=== PATIENT | female | born 1945 | race Caucasian/White ===

== ENCOUNTER 2019-09-07 10:34 | Emergency (ER) | payer MEDICARE, SELFPAY ==
--- NOTE | ~2019-09-07 | XR_ITS ---
EXAMINATION: XR elbow LT min 3V EXAM DATE: 09/07/2019 11:11 INDICATION: No known recent injury provided at this time. Pain of the left elbow. TECHNIQUE: Left elbow frontal, lateral with flexion, and oblique projections obtained and reviewed. There is no prior study for comparison. FINDINGS: Left elbow anterior humeral line intact. There are no acute fractures or dislocations jasbir ntified. There is no subcutaneous gas. The soft tissue is unremarkable. There are no radiopaque f oreign bodies. IMPRESSION: 1. Unremarkable XR elbow LT min 3V exam. Reviewed, dictated and finalized at location A. [employer]
--- NOTE | ~2019-09-07 | XR_ITS ---
EXAMINATION: XR wrist LT min 3V EXAM DATE: 09/07/2019 11:12 INDICATION: No known recent injury provided at this time. Pain of the left wrist. TECHNIQUE: Left wrist frontal, frontal with ulnar deviation, oblique and lateral projections obtained and reviewed. There is no prior study for comparison. FINDINGS: Left wrist scapholunate joint space is maintained. There is mild to moderate triscaphe and first carpometacarpal primary osteoarthritis. There are no acute fractures or dislocations identified . There is no subcutaneous gas. The soft tissue is unremarkable. There are no radiopaque foreign bodies. There are no bony erosions identified. 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 Reviewed, dictated and finalized at location A. [employer] TECH
[2019-09-07 10:42] VITALS: BP 157/82; PULSE 87; RESP 18; TEMP 36.7; O2SAT 99
[2019-09-07 11:29] LABS: Basophils Percent Auto 0.4 % (0.2-1.2); Eosinophils Percent Auto 0.5 % (0-4.4); Hematocrit 34.8 % (37.0-47.0); Hemoglobin 11.4 g/dL (12.0-15.0); Immature Granulocyte Absolute 0.03 K/mm3 (0.00-0.031); Immature Granulocyte Percent A 0.4 % (0-0.5); Lymphocytes Absolute Auto 1.37 K/mm3 (0.9-3.2); Lymphocytes Percent Auto 18.7 % (18.3-44.2); Mean Corpuscular HGB Conc 32.8 g/dl (32-36); Mean Corpuscular Volume 94.6 fl (80-100); Mean Platelet Volume 8.4 fl (7.4-10.4); Monocytes Absolute Auto 0.6 K/mm3 (0.1-0.6); Monocytes Percent Auto 7.8 % (2.6-8.5); Neutrophils Absolute Auto 5.3 K/mm3 (1.3-6.7); Neutrophils Percent Auto 72.2 % (45.5-73.1); Platelet Count Result 271 k/mm3 (150-375); Red Blood Count 3.68 M/mm3 (4.2-5.4); Red Cell Distribution Width 13.5 % (11.5-14.5); White Blood Count 7.3 K/mm3 (4.5-10.0)
--- NOTE | 2019-09-07 11:35 | ED.GENADULT ---
HPI - General Adult General Chief complaint: Extremity Injury, Upper Stated complaint: Left Hand Swelling Time Seen by Provider: 09/07/19 10:54 Source: patient and family Mode of arrival: ambulatory Limitations: no limitations History of Present Illness HPI narrative: Patient is a 74-year-old female who presents to emergency department for evaluation of left wrist pain and swelling noticed this morning patient notes that she woke with the discomfort with redness swelling and tenderness throughout the wrist joint worse with any activity or movement denies similar occurrence in the past patient has not taken anything for her symptoms. Patient denies fever chills weakness Onset (ago): hour(s) Location: upper extremity Radiation: extremity Severity: moderate Quality: aching Pain Consistency: constant Relieving factors: rest Exacerbating factors: movement Associated symptoms: denies other symptoms Treatments prior to arrival: none Related Data Home Medications Medication Instructions Recorded Confirmed amlodipine 09/07/19 bimatoprost [Lumigan] 09/07/19 hydrochlorothiazide 09/07/19 Allergies Allergy/AdvReac Type Severity Reaction Status Date / Time lisinopril Allergy Severe KIDNEY Verified 09/07/19 10:47 ISSUES fenofibrate Allergy Mild Unknown Verified 09/07/19 10:47 loratadine Allergy Unknown Unknown Verified 09/07/19 10:47 Penicillins Allergy Unknown Unknown Verified 09/07/19 10:47 Review of Systems Review of Systems: Narrative: CONSTITUTIONAL: Denies fever, chills, or sweats. EYES: Denies redness, or discharge. ENT: Denies rhinorrhea, congestion, sore throat, or otalgia. CARDIOVASCULAR: Denies chest pain, or edema. RESPIRATORY: Denies cough or dyspnea. GASTROINTESTINAL: Denies abdominal pain, nausea, vomiting. Positive for diarrhea GENITOURINARY: Denies dysuria or hematuria. SKIN: Positive for redness and swelling of the wrist joint MUSCULOSKELETAL: Positive for swelling and pain of the left wrist joint NEUROLOGIC: Denies headache, numbness, dizziness, or weakness. PMFSH Past Medical History Medical History Hypertension Social History Social History (Updated 09/07/19 @ 11:40 by Frankie Goldman PA-C) Smoking status: Current every day smoker Exam Narrative: Exam Narrative: GENERAL: Well-appearing, well-nourished, and in no acute distress. HEAD: Normocephalic, atraumatic. EYES: PERRLA and EOMI. ENT: Nares clear, no rhinorrhea or epistaxis. Mucous membranes moist. Oropharynx without tonsillar hypertrophy exudate or other lesions. CHEST: Clear to auscultation. No respiratory distress. No wheezes rales or rhonchi HEART: Regular rate and rhythm. No murmur heard. Normal peripheral pulses. ABDOMEN: Soft, nontender, nondistended EXTREMITIES: Normal range of motion. No edema. SKIN: Warm, dry, no rash. NEURO: No focal deficits. Alert and oriented x3. Neurovascularly intact. Capillary refill less than 2 seconds. Redness swelling and tenderness surrounding the left wrist joint PSYCH: Normal mood and affect. Course Course Emergency Course: Patient in the room in no distress afebrile nontoxic appearing no distress resting comfortably felt appropriate for outpatient reevaluation Consultations Consultation #1: Spoke with Dr. Sanches the preparole counseling aide of the patient to review patient's kidney function given the lack of prior blood work which she notes is in her normal range. Agrees that the patient likely has an inflammatory arthropathy that can be followed in clinic Date: 09/07/19 Time: 13:12 Consultation #2: Spoke with patient's primary care doctor Dr. Ramos who would like the patient started on Medrol Dosepak and to be given pain medicine and to follow in clinic. Agrees that the patient likely has an inflammatory arthropathy that can be followed in clinic Date: 09/07/19 Time: 13:12 Consultation #3: Patient case discussed in entirety with
[2019-09-07 11:41] LABS: INR 0.9
[2019-09-07 11:42] LABS: Partial Thromboplastin Time 26.6 SECONDS (22.3-36.8)
[2019-09-07 11:43] LABS: Alanine Aminotransferase 28 U/L (4-35); Albumin Level 3.9 g/dL (3.5-5.1); Alkaline Phosphatase 78 U/L (38-126); Aspartate Amino Transferase 26 U/L (14-36); Bilirubin,Total 0.3 mg/dL (0.2-1.3); Blood Urea Nitrogen 37 mg/dL (7-17); Calcium 9.1 mg/dL (8.4-10.2); Carbon Dioxide 25 mmol/L (22-30); Chloride 102 mmol/L (98-107); Estimated CRCL calculation 17 ml/min; Estimated Glomerular Filt Rate 22; Glucose 148 mg/dL (65-105); Potassium 4.1 mmol/L (3.4-5.0); Sodium 137 mmol/L (137-145); Uric Acid 7.6 mg/dL (2.5-7.5)
[2019-09-07 12:02] LABS: CRP 5.2 mg/dL (<1.0)
[2019-09-07 12:04] VITALS: BP 154/78; PULSE 75; RESP 16; TEMP 36.7; O2SAT 97
[2019-09-07] MEDS: SODIUM CHLORIDE 0.9% IV 1,000 ML 150 ML IV CONT (12:07)
[2019-09-07 12:51] LABS: Erythrocyte Sedimentation Rate > 140 mm/hr (0-20)
[2019-09-07] MEDS: methylPREDNISolone SOD SUCC 125 MG VIAL 60 MG IV PUSH (13:00)
[2019-09-07] MEDS: COLCHICINE 0.6 MG TABLET 1.2 MG PO (14:06)
[2019-09-07 14:40] VITALS: BP 166/89; PULSE 78; RESP 16; TEMP 36.6; O2SAT 97
== END 2019-09-07 14:50 | disposition home or self-care (01) ==
PROVIDERS: Emergency Medicine Emergency Medical Services; Emergency Provider Emergency Medicine; PCP Family Medicine Adolescent Medicine
DX: M25.532 Pain in left wrist (principal); I10 Essential (primary) hypertension; F17.200 Nicotine dependence, unspecified, uncomplicated; M19.032 Primary osteoarthritis, left wrist
CPT/HCPCS: 36415; 73080; 73110; 80053; 84550; 85025; 85610; 85652; 85730; 86140; 96361; 96365; 96375; 99284; A9270; J0131; J2930; J7030

== ENCOUNTER → 2020-01-11 14:08 | Outpatient (CLI) | payer MEDICARE, SELFPAY ==
--- NOTE | ~2020-01-11 | MM_ITS ---
EXAMINATION: MM screening marion BI w jose HISTORY: Screening mammogram TECHNIQUE: Craniocaudal and mediolateral oblique 3-D tomosynthesis images were obtained and synthetic 2-D images were generated. CAD analysis was submitted and interpreted. COMPARISON: 12/16/2018, 11/17/2017, 10/19/2016 bilateral digital screening mammogram examinations BREAST PARENCHYMAL COMPOSITION: There are scattered areas of fibroglandular density. FINDINGS: There are multiple bilateral secretory calcifications and occasional calcified microhematom as There is no evidence of suspicious mass, calcification, or architectural distortion to suggest mal ignancy in either breast. There has been no suspicious interval change. IMPRESSION: 1. No mammographic evidence of malignancy. 2. Recommend routine screening mammography in one year. BI-RADS Category 2: Benign finding(s). Reviewed, dictated and finalized at location A.
== END ==
PROVIDERS: PCP Family Medicine Adolescent Medicine; Visit Provider Family Medicine Adolescent Medicine
DX: Z12.31 Encounter for screening mammogram for malignant neoplasm of breast (principal)
CPT/HCPCS: 77063; 77067

== ENCOUNTER 2020-06-25 03:24 | Outpatient (CLI) | payer MEDICARE, SELFPAY ==
[2020-06-25 20:03] LABS: SARS-CoV-2 RNA PCR Negative
== END 2020-06-25 03:25 | disposition home or self-care (01) ==
LOC: ANHCOVIDDT 03:26
PROVIDERS: PCP Family Medicine Adolescent Medicine; Visit Provider Internal Medicine Nephrology
DX: Z01.812 Encounter for preprocedural laboratory examination (principal); Z20.828 Contact with and (suspected) exposure to other viral communicable diseases
CPT/HCPCS: 87635; C9803; U0003

== ENCOUNTER 2020-06-28 09:29 | Outpatient (CLI) | payer MEDICARE, SELFPAY ==
[2020-06-19 13:18] VITALS: BMI 27.1
[2020-06-28 11:16] LABS: Mean Platelet Volume 8.6 fl (7.4-10.4); Platelet Count Result 226 k/mm3 (150-375)
[2020-06-28 11:27] LABS: Prothrombin Time 12.7 Seconds (11.1-14.7)
== END 2020-06-28 09:30 | disposition home or self-care (01) ==
PROVIDERS: Radiology Diagnostic Radiology; PCP Family Medicine Adolescent Medicine; Visit Provider Internal Medicine Nephrology
DX: N18.4 Chronic kidney disease, stage 4 (severe) (principal)
CPT/HCPCS: 36415; 85049; 85610

== ENCOUNTER 2020-06-28 14:00 | Observation (INO) | payer MEDICARE, SELFPAY ==
[2020-06-28] VITALS (15 sets, daily range): BP systolic 139–195; BP diastolic 58–85; PULSE 70–90; RESP 16–21; TEMP 36.1–36.5; O2SAT 93–97; BMI 27.0
--- NOTE | ~2020-06-28 | US_ITS ---
EXAMINATION: US biopsy renal DATE: 07/01/2020 12:57 INDICATION: Nephrotic range proteinuria. Worsening chronic kidney disease. TECHNIQUE: The procedure including the risks, benefits, and alternatives was discussed with the patie nt. Risks discussed included bleeding and infection. The patient understood the risks and agreed to p roceed. A timeout was performed to verify the patient's name, date of , and procedure to be p erformed. The skin overlying the left kidney was prepped and draped in usual sterile fashion. Anest hetic was administered with 1% lidocaine subcutaneously. An 18 gauge core biopsy needle was then use d to obtain 3 core biopsy specimens under continuous sonographic guidance. The entry site was cleaned and dressed. There were no immediate complications. FINDINGS: Ultrasound images demonstrate the needle in the kidney. IMPRESSION: 1. Ultrasound-guided random left kidney core needle biopsy. Reviewed, dictated and finalized at location A.
--- NOTE | 2020-06-28 15:55 | ECG_ITS ---
Measurements Intervals [place] Rate: 79 P: 46 GA: 201 QRS: 80 QRSD: 127 T: 56 QT: 369 QTc: 425 Interpretive Statements SINUS RHYTHM RIGHT BUNDLE BRANCH BLOCK BASELINE ARTIFACT- I, II ABNORMAL ECG Electronically Signed On 06-28-2020 20:18:25 CDT by Clarence Nguyễn D.O.
--- NOTE | 2020-06-28 15:55 | ED.GENADULT ---
HPI - General Adult General Chief complaint: Recheck/Abnormal Lab/Rx Stated complaint: sent by pcp, kidney issues Time Seen by Provider: 06/28/20 15:54 Source: patient Mode of arrival: ambulatory Limitations: no limitations History of Present Illness HPI narrative: Patient is a 74-year-old female sent here by Dr. Sanches due to elevated blood pressure. Patient is supposed to have a kidney biopsy today but was told by Dr. Sanches that her blood pressure was too high so she needed to go to the emergency room and get admitted for blood pressure control. Patient denies any symptoms. Patient denies headache dizziness weakness numbness speech or visual disturbance chest pain shortness of breath abdominal pain or nausea vomiting. Related Data Home Medications Medication Instructions Recorded Confirmed Vitamin D3 1 tablet PO DAILY 06/19/20 06/19/20 allopurinol 1 tablet PO DAILY 06/19/20 06/19/20 furosemide 20 mg PO DAILY 06/19/20 06/19/20 multivitamin 1 tablet PO DAILY 06/19/20 06/19/20 terazosin 6 mg PO BID 06/19/20 06/19/20 Allergies Allergy/AdvReac Type Severity Reaction Status Date / Time lisinopril Allergy Severe KIDNEY Verified 06/19/20 13:21 ISSUES, SKIN BLISTERS loratadine Allergy Severe Swelling Verified 06/28/20 14:23 fenofibrate Allergy Mild Unknown Verified 06/19/20 13:21 Penicillins Allergy Unknown Rash Verified 06/19/20 13:21 Review of Systems Review of Systems: All systems reviewed & are unremarkable except as noted in HPI and below Constitutional: Constitutional: Denies body ache(s), Denies chills, Denies excessive sweating, Denies fatigue, Denies fever(s), Denies headache(s), Denies lethargy, Denies malaise, Denies weakness and Denies weight loss Eyes: Eyes: Denies blurry vision, Denies change in vision and Denies loss of vision ENT: Denies dizziness, Denies ear discharge, Denies headache(s), Denies lip swelling, Denies epistaxis, Denies nasal congestion, Denies neck pain, Denies throat swelling and Denies tongue swelling Cardiovascular: Cardiovascular: Denies chest pain, Denies chest pain at rest, Denies chest pain with activity, Denies diaphoresis, Denies rapid heart rate, Denies edema, Denies irregular heart rhythm, Denies lightheadedness, Denies palpitations, Denies dyspnea and Denies dyspnea on exertion Respiratory: Respiratory: Denies chest congestion, Denies cough, Denies hemoptysis, Denies dyspnea and Denies dyspnea on exertion Gastrointestinal: Gastrointestinal: Denies abdominal pain, Denies melena, Denies hematochezia, Denies diarrhea, Denies nausea, Denies vomiting and Denies hematemesis Musculoskeletal: Musculoskeletal: Denies abnormal gait, Denies deformity, Denies joint swelling, Denies limited range of motion, Denies neck pain and Denies numbness Neurologic: Denies Abnormal speech present, Denies abnormal gait, Denies confusion, Denies dizziness, Denies headache(s), Denies focal weakness, Denies loss of vision, Denies numbness, Denies Other visual disturbances, Denies Sensory deficit (Neuro) and Denies weakness Psychiatric: Psychiatric: Denies confusion, Denies depression, Denies auditory hallucinations, Denies homicidal ideation and Denies suicidal ideation Endocrine: Endocrine: Denies cold intolerance, Denies excessive sweating, Denies fatigue, Denies heat intolerance and Denies palpitations Hematologic/Lymphatic: Hematologic/Lymphatic: Denies easy bleeding and Denies easy bruising Allergic/Immunologic: Allergic/Immunologic: Denies lip swelling, Denies throat swelling and Denies tongue swelling [facility] Social History Social History (Updated 09/07/19 @ 11:40 by Frankie Goldman PA-C) Smoking status: Current every day smoker Exam Const: General: cooperative, healthy appearing, comfortable, no acute distress, well developed, alert and awake; No confusion Orientation/consciousness: oriented to person, oriented to place, oriented to time, patient oriented x3 and No confusion Li
[2020-06-28 16:10] LABS: Basophils Percent Auto 0.5 % (0.2-1.2); Eosinophils Absolute Auto 0.1 K/mm3 (0-0.3); Eosinophils Percent Auto 2.1 % (0-4.4); Hematocrit 29.5 % (37.0-47.0); Hemoglobin 9.8 g/dL (12.0-15.0); Immature Granulocyte Absolute 0.02 K/mm3 (0.00-0.031); Immature Granulocyte Percent A 0.3 % (0-0.5); Lymphocytes Absolute Auto 1.43 K/mm3 (0.9-3.2); Lymphocytes Percent Auto 24.6 % (18.3-44.2); Mean Corpuscular HGB Conc 33.2 g/dl (32-36); Mean Corpuscular Hemoglobin 31.5 pg (26-34); Mean Corpuscular Volume 94.9 fl (80-100); Mean Platelet Volume 8.5 fl (7.4-10.4); Monocytes Absolute Auto 0.5 K/mm3 (0.1-0.6); Monocytes Percent Auto 7.9 % (2.6-8.5); Neutrophils Absolute Auto 3.8 K/mm3 (1.3-6.7); Neutrophils Percent Auto 64.6 % (45.5-73.1); Platelet Count Result 212 k/mm3 (150-375); Red Blood Count 3.11 M/mm3 (4.2-5.4); Red Cell Distribution Width 15.4 % (11.5-14.5); White Blood Count 5.8 K/mm3 (4.5-10.0)
[2020-06-28 16:22] LABS: Anion Gap 6 mmol/L (8-16); Blood Urea Nitrogen 44 mg/dL (7-17); Calcium 8.8 mg/dL (8.4-10.2); Carbon Dioxide 26 mmol/L (22-30); Chloride 105 mmol/L (98-107); Estimated CRCL calculation 17 ml/min; Estimated Glomerular Filt Rate 20; Glucose 127 mg/dL (65-105); Potassium 4.4 mmol/L (3.4-5.0); Sodium 137 mmol/L (137-145)
--- NOTE | 2020-06-28 20:20 | ADMGEN ---
This patient, Maura Hernandez, was admitted to Medical Room 341-01. Patient/family oriented to hospital policies and general routines including ID bracelet, bed and alarms, visiting hours, pain management, procedures, bathroom and other care routines, personal items, smoking policy, room service/diet, and visiting hours. Valuables list has been completed. Information on how to activate the Rapid Response Team has been discussed. Patient/Family are encouraged to report perceived risks to care and to ask questions if they do not understand what they are told or what they should do.
[2020-06-28] MEDS: TERAZOSIN HCL 5 MG CAPSULE PO (21:27)
[2020-06-28] MEDS: TERAZOSIN HCL 1 MG CAPSULE PO (21:28)
[2020-06-28] MEDS: LABETALOL HCL INJ 100 MG/20 ML VIAL 20 MG IV PUSH (21:29)
--- NOTE | 2020-06-28 22:26 | PM.IMHP ---
H&P: HPI History of Present Illness Date/Time: 06/28/20 22:26 Chief complaint: ACUTE KIDNEY INJURY, UNCONTROLLED HTN Narrative: Maura Hernandez is a 74 year old female Who has a history of chronic renal failure stage 4-5. From what I can tell her creatinine is been pretty stable and her GFR. The patient was supposed to have a renal biopsy today however her blood pressure was too high and she was sent to the emergency room to get her blood pressure down. Her blood pressure is 185/73 and 195/81. The patient still continues to smoke about half a pack a cigarettes a day. And she said that she took her Lasix and her blood pressure medication before she came here this morning for her biopsy. And her blood pressure was still high. I asked her she was anxious and she said she really was Not. The patient was not given anything in the emergency room. I gave her hydralazine and then I ordered labetalol. I also ordered p.r.n. Ativan as well. Date of service 06/28/2020 Review of Systems Review of Systems: All systems reviewed & are unremarkable except as noted in HPI and below Constitutional: Constitutional: Reports as per HPI and Reports no additional constitutional complaints Eyes: Eyes: Reports as per HPI and Reports no additional eye complaints ENT: Reports system reviewed and no additional complaints, except as documented and Reports Normal hearing present Cardiovascular: Cardiovascular: Reports no additional cardiovascular complaints Respiratory: Respiratory: Reports no additional respiratory complaints and Reports no additional respiratory complaints Gastrointestinal: Gastrointestinal: Reports as per HPI and Reports no additional gastrointestinal complaints Musculoskeletal: Musculoskeletal: Reports no additional musculoskeletal complaints Integumentary/Breasts: Skin/Breast: Reports system reviewed and no additional complaints, except as docu and Reports as per HPI Neurologic: Reports system reviewed and no additional complaints, except as documented, Reports as per HPI and Reports Normal hearing present Psychiatric: Psychiatric: Reports no additional psychiatric complaints and Reports as per HPI Endocrine: Endocrine: Reports no additional endocrine complaints Hematologic/Lymphatic: Hematologic/Lymphatic: Reports no additional hematologic/lymphatic complaints Allergic/Immunologic: Allergic/Immunologic: Reports no additional allergic/immunologic complaints [facility] Past Medical History Medical History (Updated 06/28/20 @ 22:48 by Ritu Bass NP) Anemia Chronic renal failure, stage 4 (severe) Glaucoma Gout Hypertension Macular degeneration Surgical History Surgical History (Updated 06/28/20 @ 22:33 by Ritu Bass NP) H/O bilateral cataract extraction Family History Family History (Updated 06/28/20 @ 22:34 by Ritu Bass NP) Sibling Acute myocardial infarction Father Cerebrovascular accident Sibling Diabetes mellitus Mother Heart disease Social History Social History (Updated 06/28/20 @ 22:38 by Ritu Bass NP) Social History: The patient lives alone and 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 she is a full code and her daughter is the durable power for tax associate attorney. The patient raised her grandson vicki but only had one daughter. She her and they continued to live together until 3 years ago when he . No alcohol or street drugs. Years smoked: 30 Smoking status: Current every day smoker Tobacco type: cigarettes Alcohol intake: current Drinks per week: 1 Substance use: never Gender identity (if verbalized by the patient): Female Spiritual care concerns: No Meds Home Medications and Allergies Home Medications Medication Instructions Recorded Confirmed Type Vitamin D3 2,000 unit PO DAILY 06/19/20 06/28/20 History furosemide 20 mg PO DAILY 06/19/20 06/28/20 History multivitamin 1 table
[2020-06-29 05:45] LABS: Basophils Percent Auto 0.7 % (0.2-1.2); Eosinophils Absolute Auto 0.1 K/mm3 (0-0.3); Eosinophils Percent Auto 1.8 % (0-4.4); Hemoglobin 9.3 g/dL (12.0-15.0); Immature Granulocyte Absolute 0.03 K/mm3 (0.00-0.031); Immature Granulocyte Percent A 0.7 % (0-0.5); Lymphocytes Absolute Auto 1.15 K/mm3 (0.9-3.2); Lymphocytes Percent Auto 25.5 % (18.3-44.2); Mean Corpuscular HGB Conc 32.1 g/dl (32-36); Mean Corpuscular Hemoglobin 31.2 pg (26-34); Mean Corpuscular Volume 97.3 fl (80-100); Mean Platelet Volume 8.8 fl (7.4-10.4); Monocytes Absolute Auto 0.4 K/mm3 (0.1-0.6); Monocytes Percent Auto 8.4 % (2.6-8.5); Neutrophils Absolute Auto 2.8 K/mm3 (1.3-6.7); Neutrophils Percent Auto 62.9 % (45.5-73.1); Platelet Count Result 200 k/mm3 (150-375); Red Blood Count 2.98 M/mm3 (4.2-5.4); Red Cell Distribution Width 15.3 % (11.5-14.5); White Blood Count 4.5 K/mm3 (4.5-10.0)
[2020-06-29 05:46] VITALS: BP 163/60; PULSE 63; RESP 16; TEMP 36.4; O2SAT 96
[2020-06-29 06:05] LABS: Alanine Aminotransferase 22 U/L (4-35); Albumin Level 3.5 g/dL (3.5-5.1); Alkaline Phosphatase 71 U/L (38-126); Anion Gap 10 mmol/L (8-16); Aspartate Amino Transferase 28 U/L (14-36); Bilirubin,Total 0.2 mg/dL (0.2-1.3); Blood Urea Nitrogen 44 mg/dL (7-17); Calcium 8.6 mg/dL (8.4-10.2); Carbon Dioxide 26 mmol/L (22-30); Chloride 107 mmol/L (98-107); Estimated CRCL calculation 16 ml/min; Estimated Glomerular Filt Rate 18; Glucose 84 mg/dL (65-105); Magnesium 2.1 mg/dL (1.6-2.3); Potassium 4.2 mmol/L (3.4-5.0); Sodium 143 mmol/L (137-145)
[2020-06-29 07:13] LABS: Free T4 Free Thyroxine Reflex 0.92 ng/dL (0.78-2.19)
[2020-06-29 08:12] LABS: Total Triiodothyronine (T3) 0.93 NG/ML (0.97-1.69)
--- NOTE | 2020-06-29 09:42 | PM.CNNEP ---
Assessment and Plan Assessment and plan (1) Chronic renal failure, stage 4 (severe): Code(s): N18.4 - Chronic kidney disease, stage 4 (severe) Status: Chronic Assessment and Plan: slow deterioration of renal function in the last year most recent outpatient labs with a creatinine of 3.1mg/dl (GFR 14cc/min) outpatient evaluation with nephrotic range proteinuria, + REAGAN and + [employer] outpatient renal biopsy not able to be done due to elevated BP issues attempt renal biopsy on Wednesday assuming better BP control achieved while hospitalized (2) Uncontrolled hypertension: Code(s): I10 - Essential (primary) hypertension Status: Acute Assessment and Plan: fluctuates as noted since admission goal is to get BP below 160s (per radiology protocol) to do renal biopsy safely PRN medications ordered follow trend of BP over course of the day and add/adjust medications - consider adding oral hydralazine versus amlodipine if necessary (3) Anemia: Code(s): D64.9 - Anemia, unspecified Status: Acute Assessment and Plan: presumably related to CKD check iron studies to assess if need IV iron follow trend of H/H Will continue to follow. History of Present Illness Reason for Consult Consult date: 06/29/20 Reason for consult: chronic renal failure Chief Complaint Chief complaint: ACUTE KIDNEY INJURY, UNCONTROLLED HTN History of Present Illness Narrative: The patient is a 74-year-old female with a past medical history as outlined below who presented to [facility] room for uncontrolled hypertension and worsening kidney function. The patient was originally scheduled for a outpatient renal biopsy yesterday for further evaluation of her ongoing decline in her kidney function in the last year. Unfortunately, her blood pressure was too high for the procedure to be done safely. Further complicating matters is the fact that this outpatient kidney biopsy has been rescheduled several times as her blood pressure has been difficult to control as an outpatient in general. From review of her records, on this most recent attempt at an outpatient kidney biopsy, it was felt that if her blood pressure remained elevated and the kidney biopsy could not be done, it was felt that perhaps inpatient hospitalization for to optimize her blood pressure would be warranted in attempt to get the kidney biopsy done sooner than later particularly since her kidney function has been slowly declining. Evaluation emergency room did not demonstrate patient to be in any distress but her blood pressure was mildly elevated. After discussion with Dr. Sanches, particularly in the setting of ongoing deterioration of her kidney function and the concern that she may require further intervention with whatever pathology may be present in her kidneys, it was decided for admission for medical management of her blood pressure and subsequent renal biopsy for definitive answer of what is causing her kidney function to deteriorate. Renal consultation was requested due to her chronic kidney disease. From review of her records and my discussion with Dr. Sanches, the patient's kidney function has been slowly declining in the last year. The patient had a baseline creatinine around 1.8-2.0 mg/dL about a year ago. However, more recently, her kidney function has been slowly declining with her most recent outpatient labs demonstrated a creatinine of 3.1 mg/dL with a GFR of 14cc/minute. it was discussed with the patient that if her kidney function continues to deteriorate she may require renal replacement therapy/dialysis which eventually led to her decision to agree to a renal biopsy (she had previously refused to do this in the past due to work related issues). Unfortunately, as already mentioned above, her blood pressure has been extremely difficult to control and all attempts to arrange for an outpatient renal biopsy have been m
[2020-06-29] MEDS: TERAZOSIN HCL 5 MG CAPSULE PO ×2 (09:56→17:06)
[2020-06-29] MEDS: FUROSEMIDE 20 MG TABLET PO (09:56)
[2020-06-29] MEDS: CHOLECALCIFEROL 1,000 UNITS TABLET 2000 UNITS PO (09:56)
[2020-06-29] MEDS: MULTIVITAMINS THERAPEUTIC TAB (*BKC) 1 TABLET PO (09:56)
[2020-06-29] MEDS: TERAZOSIN HCL 1 MG CAPSULE PO ×2 (09:56→17:06)
[2020-06-29] MEDS: allopurinoL 100 MG TABLET PO (12:48)
[2020-06-29 14:00] VITALS: BP 152/62; PULSE 66; RESP 16; TEMP 36.6; O2SAT 99
[2020-06-29] MEDS: NICOTINE (*PBKC) 14 MG PATCH 1 PATCH TRANSDERM (14:33)
--- NOTE | 2020-06-29 16:45 | PM.IMPN ---
Progress Note: A&P Assessment and Plan (1) Uncontrolled hypertension: Code(s): I10 - Essential (primary) hypertension Status: Acute Assessment and Plan: Patient was scheduled to have an outpatient renal biopsy 06/28 for evaluation of declining renal function over the last 1 year. Biopsy was unable to be performed safely due to elevated blood pressures on arrival. BPs as elevated as 195/81 on arrival. She was treated with IV labetalol. Today she remains on Terazosin. Appreciate nephrology recommendations. Monitor BP and adjust treatment as needed. (2) Chronic renal failure, stage 4 (severe): Code(s): N18.4 - Chronic kidney disease, stage 4 (severe) Status: Chronic Assessment and Plan: Management per nephrology - appreciate recommendations. Tentative plan is for renal biopsy on Wednesday if blood pressures are improved. (3) Anemia: Qualifiers: Anemia type: unspecified type Qualified Code(s): D64.9 - Anemia, unspecified Code(s): D64.9 - Anemia, unspecified Status: Acute Assessment and Plan: H&H low but stable. No evidence of acute bleeding. Suspect may be related to chronic kidney disease, however will check iron panel, B12, folate in AM. Monitor CBC and transfuse PRN. Subjective Date/time seen: 06/29/20 1200 Interval history: Ms. Hernandez is a 74yo F admitted for hypertension. She was scheduled to get an outpatient renal biopsy yesterday which was not able to be performed due to elevated blood pressure. She reports feeling fine today and denies any chest pain, shortness of breath, dizziness, lightheadedness, or headache. She is hungry from being NPO but otherwise offers no complaints. She denies any nausea or vomiting. Review of Systems Review of Systems: Narrative: Twelve systems were reviewed with pertinent positives and negatives as per HPI. Exam Narrative: Exam Narrative: General: Female ambulating independently in the room, then sitting on the edge of the bed in no acute distress. HEENT: Normocephalic, EOMI, oral mucosa moist. Cardiovascular: Rate and rhythm are regular. Respiratory: Lungs clear to auscultation all schuler. Non-labored breathing. Tolerating room air. Abdomen: Soft, non-tender, non-distended, bowel sounds present. Extremities: Peripheral pulses intact. No edema. Neuro: No focal neurological deficits. Speech is clear. Objective Data Vital Signs Vital Signs: Last Vital Signs Temp 97.8 F 06/29/20 14:00 Pulse 66 06/29/20 14:00 Resp 16 06/29/20 14:00 BP 152/62 H 06/29/20 14:00 Pulse Ox 99 06/29/20 14:00 Intake/Output Intake/Output: Intake & Output 06/26/20 06/27/20 06/28/20 06/29/20 23:59 23:59 23:59 23:59 Intake Total 480 Output Total 600 Balance -120 Meds/Results Medications: Active Medications Generic Name Dose Route Start Last Admin Trade Name Freq PRN Reason Stop Dose Admin Allopurinol 100 mg 06/29/20 12:00 06/29/20 12:48 Zyloprim PO 100 mg 1200 CHRISTOPHE Administration Furosemide 20 mg 06/29/20 09:00 06/29/20 09:56 Lasix Tablet PO 20 mg DAILY CHRISTOPHE Administration Hydralazine HCl 10 mg 06/28/20 20:59 Apresoline Hcl Inj IV PUSH Q8H PRN Blood Pressure - High Lorazepam 0.5 mg 06/28/20 22:29 Ativan Inj IV PUSH Q6H PRN Anxiety Multivitamins Therapeutic 1 tablet 06/29/20 09:00 06/29/20 09:56 Multivitamins Therapeutic(*Bkc PO 1 tablet DAILY CHRISTOPHE Administration Nicotine 1 patch 06/29/20 11:35 06/29/20 14:33 Nicoderm Cq 14 Mg TRANSDERM 1 patch QAM CHRISTOPHE Administration Terazosin HCl 5 mg 06/28/20 21:05 06/29/20 09:56 Hytrin PO 5 mg BID CHRISTOPHE Administration Terazosin HCl 1 mg 06/28/20 21:05 06/29/20 09:56 Hytrin PO 1 mg BID CHRISTOPHE Administration Vitamin D 2,0
[2020-06-29 20:36] VITALS: BP 178/68; PULSE 66; RESP 16; TEMP 36.7; O2SAT 95
[2020-06-29 23:19] VITALS: BP 182/76
[2020-06-29] MEDS: hydrALAZINE HCL 20 MG/ML VIAL 10 MG IV PUSH (23:22)
[2020-06-30 01:30] VITALS: BP 168/74
[2020-06-30 05:47] VITALS: BP 185/75; PULSE 92; RESP 16; TEMP 36.8; O2SAT 98
[2020-06-30 06:36] LABS: Basophils Percent Auto 0.4 % (0.2-1.2); Eosinophils Absolute Auto 0.1 K/mm3 (0-0.3); Eosinophils Percent Auto 1.5 % (0-4.4); Hematocrit 31.1 % (37.0-47.0); Immature Granulocyte Absolute 0.03 K/mm3 (0.00-0.031); Immature Granulocyte Percent A 0.5 % (0-0.5); Lymphocytes Absolute Auto 1.36 K/mm3 (0.9-3.2); Lymphocytes Percent Auto 24.9 % (18.3-44.2); Mean Corpuscular HGB Conc 32.2 g/dl (32-36); Mean Corpuscular Hemoglobin 30.6 pg (26-34); Mean Corpuscular Volume 95.1 fl (80-100); Mean Platelet Volume 8.6 fl (7.4-10.4); Monocytes Absolute Auto 0.5 K/mm3 (0.1-0.6); Monocytes Percent Auto 8.8 % (2.6-8.5); Neutrophils Absolute Auto 3.5 K/mm3 (1.3-6.7); Neutrophils Percent Auto 63.9 % (45.5-73.1); Platelet Count Result 229 k/mm3 (150-375); Red Blood Count 3.27 M/mm3 (4.2-5.4); Red Cell Distribution Width 14.9 % (11.5-14.5); White Blood Count 5.5 K/mm3 (4.5-10.0)
[2020-06-30 06:47] LABS: Anion Gap 3 mmol/L (8-16); Blood Urea Nitrogen 42 mg/dL (7-17); Carbon Dioxide 25 mmol/L (22-30); Chloride 108 mmol/L (98-107); Estimated CRCL calculation 15 ml/min; Estimated Glomerular Filt Rate 17; Glucose 118 mg/dL (65-105); Potassium 4.3 mmol/L (3.4-5.0); Sodium 136 mmol/L (137-145)
[2020-06-30 06:54] LABS: Transferrin 177 mg/dL (206-381)
[2020-06-30 06:59] LABS: Iron 45 ug/dL (37-170)
[2020-06-30 07:10] LABS: Percent Iron Saturation 18 % (20-50)
[2020-06-30 07:56] LABS: Folic Acid > 20.0 ng/mL (2.76->20)
[2020-06-30] MEDS: NICOTINE (*PBKC) 14 MG PATCH 1 PATCH TRANSDERM (08:50)
[2020-06-30] MEDS: TERAZOSIN HCL 1 MG CAPSULE PO ×2 (08:50→16:49)
[2020-06-30] MEDS: FUROSEMIDE 20 MG TABLET PO (08:51)
[2020-06-30] MEDS: TERAZOSIN HCL 5 MG CAPSULE PO ×2 (08:51→16:49)
[2020-06-30] MEDS: MULTIVITAMINS THERAPEUTIC TAB (*BKC) 1 TABLET PO (08:51)
[2020-06-30] MEDS: amLODIPine BESYLATE 2.5 MG TABLET PO ×2 (08:51→11:58)
[2020-06-30] MEDS: CHOLECALCIFEROL 1,000 UNITS TABLET 2000 UNITS PO (08:51)
[2020-06-30] MEDS: allopurinoL 100 MG TABLET PO (11:59)
--- NOTE | 2020-06-30 12:34 | PM.IMPN ---
Progress Note: A&P Assessment and Plan (1) Uncontrolled hypertension: Code(s): I10 - Essential (primary) hypertension Status: Acute Assessment and Plan: Patient was scheduled to have an outpatient renal biopsy 06/28 for evaluation of declining renal function over the last 1 year. Biopsy was unable to be performed safely due to elevated blood pressures on arrival. BPs as elevated as 195/81 on arrival. She was treated with IV labetalol. Improved but still elevated this morning. Today she remains on Terazosin and Dr Villanueva has added Norvasc. Appreciate nephrology recommendations. Monitor BP and adjust treatment as needed. (2) Chronic renal failure, stage 4 (severe): Code(s): N18.4 - Chronic kidney disease, stage 4 (severe) Status: Chronic Assessment and Plan: Management per nephrology - appreciate recommendations. Cr up to 2.7 today. Tentative plan is for renal biopsy tomorrow if blood pressures are improved. Monitor BMP. (3) Anemia: Qualifiers: Anemia type: unspecified type Qualified Code(s): D64.9 - Anemia, unspecified Code(s): D64.9 - Anemia, unspecified Status: Acute Assessment and Plan: H&H low but stable. No evidence of acute bleeding. Suspect may be related to chronic kidney disease. Monitor CBC and transfuse PRN. Subjective Date/time seen: 06/30/20 1100 Interval history: Ms. Hernandez is a 74yo F admitted for hypertension. She was scheduled to get an outpatient renal biopsy 06/28 which was not able to be performed due to elevated blood pressure. She reports feeling fine today and offers no complaints. She denies any chest pain, shortness of breath, dizziness, lightheadedness, or headache. Tolerating oral intake without nausea or vomiting. Review of Systems Review of Systems: Narrative: Twelve systems were reviewed with pertinent positives and negatives as per HPI. Exam Narrative: Exam Narrative: General: Female resting on edge of bed in no acute distress. HEENT: Normocephalic, EOMI, oral mucosa moist. Cardiovascular: Rate and rhythm are regular. Respiratory: Lungs clear to auscultation all schuler. Non-labored breathing. Tolerating room air. Abdomen: Soft, non-tender, non-distended, bowel sounds present. Extremities: Peripheral pulses intact. No edema. Neuro: No focal neurological deficits. Speech is clear. Objective Data Vital Signs Vital Signs: Last Vital Signs Temp 98.3 F 06/30/20 05:47 Pulse 92 06/30/20 05:47 Resp 16 06/30/20 05:47 BP 185/75 H 06/30/20 05:47 Pulse Ox 98 06/30/20 05:47 Intake/Output Intake/Output: Intake & Output 06/27/20 06/28/20 06/29/20 06/30/20 23:59 23:59 23:59 23:59 Intake Total 1650 540 Output Total 1850 1100 Balance -200 -560 Meds/Results Medications: Active Medications Generic Name Dose Route Start Last Admin Trade Name Freq PRN Reason Stop Dose Admin Allopurinol 100 mg 06/29/20 12:00 06/30/20 11:59 Zyloprim PO 100 mg 1200 CHRISTOPHE Administration Amlodipine Besylate 5 mg 07/01/20 09:00 Norvasc PO DAILY CHRISTOPHE Furosemide 20 mg 06/29/20 09:00 06/30/20 08:51 Lasix Tablet PO 20 mg DAILY CHRISTOPHE Administration Hydralazine HCl 10 mg 06/28/20 20:59 06/29/20 23:22 Apresoline Hcl Inj IV PUSH 10 mg Q8H PRN Administration Blood Pressure - High Lorazepam 0.5 mg 06/28/20 22:29 Ativan Inj IV PUSH Q6H PRN Anxiety Multivitamins Therapeutic 1 tablet 06/29/20 09:00 06/30/20 08:51 Multivitamins Therapeutic(*Bkc PO 1 tablet DAILY CHRISTOPHE Administration Nicotine 1 patch 06/29/20 11:35 06/30/20 08:50 Nicoderm Cq 14 Mg TRANSDERM 1 patch QAM CHRISTOPHE Administration Terazosin HCl 5 mg 06/28/20 21:05 06/30/20 08:51 Hytrin PO 5 mg BID CHRISTOPHE Administration Terazosin HCl 1
--- NOTE | 2020-06-30 13:51 | PM.PNNEP ---
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 outpatient renal biopsy not able to be done due to elevated BP issues attempt renal biopsy on Wednesday assuming better BP control achieved while hospitalized (2) Uncontrolled hypertension: Code(s): I10 - Essential (primary) hypertension Status: Acute Assessment and Plan: fluctuates as noted since admission goal is to get BP below 160s (per radiology protocol) to do renal biopsy safely PRN medications ordered added amlodipine today (3) Anemia: Qualifiers: Anemia type: unspecified type Qualified Code(s): D64.9 - Anemia, unspecified Code(s): D64.9 - Anemia, unspecified Status: Acute Assessment and Plan: presumably related to CKD check iron studies to assess if need IV iron follow trend of H/H Will continue to follow. Subjective Date/time seen: 06/30/20 13:51 No new issues or problems to report at this time; BP remains elevated so amlodipine added; no acute complaints voiced; tentatively planning renal biopsy tomorrow if BP acceptable. Exam Narrative: Exam Narrative: General: WD/WN female in NAD Heart: normal S1 and S2; no rub Lungs: clear to auscultation Abdomen: soft, nontender, nondistended, positive bowel sounds Extremities: no cyanosis or clubbing; no edema Skin: warm and dry Objective Data Vital Signs Vital Signs: Vital Signs Temp Pulse Resp BP Pulse Ox 06/30/20 05:47 36.8 C 92 16 185/75 H 98 06/30/20 01:30 168/74 H 06/29/20 23:19 182/76 H 06/29/20 20:36 36.7 C 66 16 178/68 H 95 06/29/20 14:00 36.6 C 66 16 152/62 H 99 Intake/Output Intake/Output: Intake & Output 06/27/20 06/28/20 06/29/20 06/30/20 23:59 23:59 23:59 23:59 Intake Total 1650 780 Output Total 1850 1100 Balance -200 -320 Meds/Results Medications: Active Medications Generic Name Dose Route Start Last Admin Trade Name Freq PRN Reason Stop Dose Admin Allopurinol 100 mg 06/29/20 12:00 06/30/20 11:59 Zyloprim PO 100 mg 1200 CHRISTOPHE Administration Amlodipine Besylate 5 mg 07/01/20 09:00 Norvasc PO DAILY CHRISTOPHE Furosemide 20 mg 06/29/20 09:00 06/30/20 08:51 Lasix Tablet PO 20 mg DAILY CHRISTOPHE Administration Hydralazine HCl 10 mg 06/28/20 20:59 06/29/20 23:22 Apresoline Hcl Inj IV PUSH 10 mg Q8H PRN Administration Blood Pressure - High Lorazepam 0.5 mg 06/28/20 22:29 Ativan Inj IV PUSH Q6H PRN Anxiety Multivitamins Therapeutic 1 tablet 06/29/20 09:00 06/30/20 08:51 Multivitamins Therapeutic(*Bkc PO 1 tablet DAILY CHRISTOPHE Administration Nicotine 1 patch 06/29/20 11:35 06/30/20 08:50 Nicoderm Cq 14 Mg TRANSDERM 1 patch QAM CHRISTOPHE Administration Terazosin HCl 5 mg 06/28/20 21:05 06/30/20 08:51 Hytrin PO 5 mg BID CHRISTOPHE Administration Terazosin HCl 1 mg 06/28/20 21:05 06/30/20 08:50 Hytrin PO 1 mg BID CHRISTOPHE Administration Vitamin D 2,000 units 06/29/20 09:00 06/30/20 08:51 Vitamin D PO 2,000 units DAILY CHRISTOPHE Administration Labs Labs: Laboratory Tests 06/30/20 06:13 06/30/20 06:13 Quality VTE Prophylaxis VTE prophylaxis: mechanical ordered (SCDs)
[2020-06-30 15:12] VITALS: BP 173/80; PULSE 88; RESP 14; TEMP 36.8; O2SAT 98
[2020-06-30] MEDS: hydrALAZINE HCL 20 MG/ML VIAL 10 MG IV PUSH (15:16)
[2020-06-30 17:45] VITALS: BP 133/54; PULSE 100; RESP 16; TEMP 36.7; O2SAT 97
[2020-06-30 19:45] VITALS: BP 147/69; PULSE 92; RESP 18; TEMP 37; O2SAT 96
[2020-07-01 05:37] VITALS: BP 171/69; PULSE 73; RESP 16; TEMP 36.3; O2SAT 97
[2020-07-01 06:02] LABS: Basophils Percent Auto 0.6 % (0.2-1.2); Eosinophils Absolute Auto 0.1 K/mm3 (0-0.3); Eosinophils Percent Auto 1.3 % (0-4.4); Hematocrit 29.4 % (37.0-47.0); Hemoglobin 9.5 g/dL (12.0-15.0); Immature Granulocyte Absolute 0.03 K/mm3 (0.00-0.031); Immature Granulocyte Percent A 0.6 % (0-0.5); Lymphocytes Percent Auto 24.6 % (18.3-44.2); Mean Corpuscular HGB Conc 32.3 g/dl (32-36); Mean Corpuscular Hemoglobin 30.7 pg (26-34); Mean Corpuscular Volume 95.1 fl (80-100); Mean Platelet Volume 8.9 fl (7.4-10.4); Monocytes Absolute Auto 0.5 K/mm3 (0.1-0.6); Monocytes Percent Auto 8.9 % (2.6-8.5); Neutrophils Absolute Auto 3.4 K/mm3 (1.3-6.7); Platelet Count Result 243 k/mm3 (150-375); Red Blood Count 3.09 M/mm3 (4.2-5.4); Red Cell Distribution Width 14.9 % (11.5-14.5); White Blood Count 5.3 K/mm3 (4.5-10.0)
[2020-07-01 06:11] LABS: Prothrombin Time 12.7 Seconds (11.1-14.7)
[2020-07-01 06:12] LABS: Partial Thromboplastin Time 30.7 SECONDS (22.3-36.8)
[2020-07-01 06:20] LABS: Albumin Level 3.6 g/dL (3.5-5.1); Anion Gap 6 mmol/L (8-16); Blood Urea Nitrogen 39 mg/dL (7-17); Calcium 9.1 mg/dL (8.4-10.2); Carbon Dioxide 26 mmol/L (22-30); Chloride 108 mmol/L (98-107); Estimated CRCL calculation 17 ml/min; Estimated Glomerular Filt Rate 20; Glucose 107 mg/dL (65-105); Phosphorus 5.3 mg/dL (2.5-4.5); Potassium 4.1 mmol/L (3.4-5.0); Sodium 140 mmol/L (137-145)
[2020-07-01] MEDS: hydrALAZINE HCL 20 MG/ML VIAL 10 MG IV PUSH (06:33)
[2020-07-01] MEDS: MULTIVITAMINS THERAPEUTIC TAB (*BKC) 1 TABLET PO (08:48)
[2020-07-01] MEDS: amLODIPine BESYLATE 2.5 MG TABLET PO (08:48)
[2020-07-01] MEDS: TERAZOSIN HCL 5 MG CAPSULE PO (08:48)
[2020-07-01] MEDS: TERAZOSIN HCL 1 MG CAPSULE PO (08:48)
[2020-07-01] MEDS: CHOLECALCIFEROL 1,000 UNITS TABLET 2000 UNITS PO (08:48)
[2020-07-01] MEDS: FUROSEMIDE 20 MG TABLET PO (08:49)
[2020-07-01] MEDS: NICOTINE (*PBKC) 14 MG PATCH 1 PATCH TRANSDERM (08:49)
[2020-07-01 10:07] VITALS: BP 141/63
[2020-07-01 12:51] VITALS: BP 153/80; PULSE 84; RESP 18; O2SAT 95
[2020-07-01 12:52] VITALS: BP 153/78; PULSE 86; RESP 20; O2SAT 95
[2020-07-01] MEDS: allopurinoL 100 MG TABLET PO (13:20)
[2020-07-01 14:00] VITALS: BP 153/78; PULSE 88; RESP 16; TEMP 36.3; O2SAT 94
--- NOTE | 2020-07-01 15:14 | PM.PNNEP ---
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 outpatient renal biopsy not able to be done due to elevated BP issues s/p renal biopsy on Wednesday today follow-up on preliminary results (2) Uncontrolled hypertension: Code(s): I10 - Essential (primary) hypertension Status: Acute Assessment and Plan: fluctuates as noted since admission better control at this time (3) Anemia: Qualifiers: Anemia type: unspecified type Qualified Code(s): D64.9 - Anemia, unspecified Code(s): D64.9 - Anemia, unspecified Status: Acute Assessment and Plan: presumably related to CKD follow H/H Will continue to follow - not opposed to discharge from renal perspective; myself or Dr. Sanches can call patient to review renal biopsy results/pathology when available. Subjective Date/time seen: 07/01/20 15:14 S/P renal biopsy earlier today and tolerated the procedure reasonably well; BP has been doing better with addition of amlodipne and PRN IV hydralazine; otherwise, no apparent distress voiced; no events or new issues overnight or earlier this AM. Exam Narrative: Exam Narrative: General: WD/WN female in NAD Heart: normal S1 and S2; no rub Lungs: clear to auscultation Abdomen: soft, nontender, nondistended, positive bowel sounds Extremities: no cyanosis or clubbing; no edema Skin: warm and intact Objective Data Vital Signs Vital Signs: Vital Signs Temp Pulse Resp BP Pulse Ox 07/01/20 14:00 36.3 C L 88 16 153/78 H 94 07/01/20 12:52 86 20 153/78 H 95 07/01/20 12:51 84 18 153/80 H 95 07/01/20 10:07 141/63 H 07/01/20 05:37 36.3 C L 73 16 171/69 H 97 06/30/20 19:45 37.0 C 92 18 147/69 H 96 06/30/20 17:45 36.7 C 100 16 133/54 L 97 Intake/Output Intake/Output: Intake & Output 06/28/20 06/29/20 06/30/20 07/01/20 23:59 23:59 23:59 23:59 Intake Total 1650 2270 880 Output Total 1850 2151 1999 Balance -200 119 -1120 Meds/Results Medications: Active Medications Generic Name Dose Route Start Last Admin Trade Name Freq PRN Reason Stop Dose Admin Allopurinol 100 mg 06/29/20 12:00 07/01/20 13:20 Zyloprim PO 100 mg 1200 CHRISTOPHE Administration Amlodipine Besylate 2.5 mg 07/01/20 09:00 07/01/20 08:48 Norvasc PO 2.5 mg DAILY CHRISTOPHE Administration Furosemide 20 mg 06/29/20 09:00 07/01/20 08:49 Lasix Tablet PO 20 mg DAILY CHRISTOPHE Administration Hydralazine HCl 10 mg 06/28/20 20:59 07/01/20 06:33 Apresoline Hcl Inj IV PUSH 10 mg Q8H PRN Administration Blood Pressure - High Lorazepam 0.5 mg 06/28/20 22:29 Ativan Inj IV PUSH Q6H PRN Anxiety Multivitamins Therapeutic 1 tablet 06/29/20 09:00 07/01/20 08:48 Multivitamins Therapeutic(*Bkc PO 1 tablet DAILY CHRISTOPHE Administration Nicotine 1 patch 06/29/20 11:35 07/01/20 08:49 Nicoderm Cq 14 Mg TRANSDERM 1 patch QAM CHRISTOPHE Administration Terazosin HCl 5 mg 06/28/20 21:05 07/01/20 08:48 Hytrin PO 5 mg BID CHRISTOPHE Administration Terazosin HCl 1 mg 06/28/20 21:05 07/01/20 08:48 Hytrin PO 1 mg BID CHRISTOPHE Administration Vitamin D 2,000 units 06/29/20 09:00 07/01/20 08:48 Vitamin D PO 2,000 units DAILY CHRISTOPHE Administration Radiology Results: ITS Impressions Renal Biopsy Ultrasound 07/01/20 12:59 IMPRESSION: 1. Ultrasound-guided random left kidney core needle biopsy. Labs Labs: Laboratory Tests 07/01/20 05:19 07/01/20 05:20
--- NOTE | 2020-07-01 15:33 | PM.DS ---
DS: Admitting Diagnosis Admitting Diagnosis Admitting Diagnosis: ACUTE KIDNEY INJURY, UNCONTROLLED HTN DS: Discharge Diagnosis Discharge Diagnosis (1) Uncontrolled hypertension: Code(s): I10 - Essential (primary) hypertension Status: Acute Assessment and Plan: Date of Admission 06/28/20 Date of Discharge/DOS 07/01/20 Ms. Hernandez is a pleasant 74yo F with hypertension and chronic kidney disease who presented to the ED at the instruction of Dr Sanches, as she was scheduled to have an outpatient renal biopsy but unfortunately her blood pressure was too high to safely proceed. This has happened more than once. She was admitted to help optimize her blood pressures over the weekend and renal biopsy was successfully completed on Wednesday07/01/20. She will follow up with Dr Sanches for results. She was maintained on her home Terazosin and low-dose Norvasc was added. Patient was scheduled to have an outpatient renal biopsy 06/28 for evaluation of declining renal function over the last 1 year. Biopsy was unable to be performed safely due to elevated blood pressures on arrival. BPs as elevated as 195/81 on arrival. She was treated with IV labetalol. Improved but still elevated. Today she remains on Terazosin and Dr Villanueva has added Norvasc. (2) Chronic renal failure, stage 4 (severe): Code(s): N18.4 - Chronic kidney disease, stage 4 (severe) Status: Chronic Assessment and Plan: Management per nephrology - appreciate recommendations. Cr up to 2.7 today. Underwent renal biopsy 07/01. Was hemodynamically stable following her bx and was discharged home to follow up with Dr Sanches for results. (3) Anemia: Qualifiers: Anemia type: unspecified type Qualified Code(s): D64.9 - Anemia, unspecified Code(s): D64.9 - Anemia, unspecified Status: Acute Assessment and Plan: H&H low but stable. No evidence of acute bleeding. Suspect may be related to chronic kidney disease. DS: Summary Time Spent with Patient Time attestation: Total time spent providing and/or coordinating discharge services: Exam Narrative: Exam Narrative: General: Female resting on edge of bed in no acute distress. HEENT: Normocephalic, EOMI, oral mucosa moist. Cardiovascular: Rate and rhythm are regular. Respiratory: Lungs clear to auscultation all schuler. Non-labored breathing. Tolerating room air. Abdomen: Soft, non-tender, non-distended, bowel sounds present. Extremities: Peripheral pulses intact. No edema. Neuro: No focal neurological deficits. Speech is clear. DS: Data Data Completed and Pending Labs on day of discharge: Last Vital Signs Temp 97.4 F L 07/01/20 14:00 Pulse 88 07/01/20 14:00 Resp 16 07/01/20 14:00 BP 153/78 H 07/01/20 14:00 Pulse Ox 94 07/01/20 14:00 ITS Impressions Renal Biopsy Ultrasound 07/01/20 12:59 IMPRESSION: 1. Ultrasound-guided random left kidney core needle biopsy. Laboratory Tests 07/01/20 05:19 07/01/20 05:20 Discharge Plan Discharge Attending physician on discharge: John Kinney Consulting providers: Bienvenido Villanueva ; Beatrice Armstrong ; Ottoniel Power V. ; Clarence Nguyễn ; Ritu Bass Discharging Clinician: Beatrice Armstrong Anticipated Discharge Date/Time: 07/01/20 15:35 Patient Disposition: Home, Self-Care Activity: as tolerated Diet: as tolerated Discharge Instructions: Call to schedule a follow up appointment with Dr Sanches in the office after discharge. New blood pressure medication: amlodipine (norvasc). Continue to monitor your blood pressure at home and keep a log to show to Dr Sanches at your follow up appointment. Return to ER if you have concerning symptoms including chest pain, feeling like you can't
== END 2020-07-01 16:27 | disposition home or self-care (01) ==
LOC: ANHED 18:26 → ANH3MED 19:10
PROVIDERS: Internal Medicine Nephrology; Nurse Practitioner; Admitting Provider Family Medicine; Emergency Provider Emergency Medicine; PCP Family Medicine Adolescent Medicine; Visit Provider Physician Assistant
DX: N17.9 Acute kidney failure, unspecified (principal); I12.9 Hypertensive chronic kidney disease with stage 1 through stage 4 chronic kidney disease, or unspecified chronic kidney disease; N18.4 Chronic kidney disease, stage 4 (severe); F17.210 Nicotine dependence, cigarettes, uncomplicated; D63.1 Anemia in chronic kidney disease
CPT/HCPCS: 36415; 50200; 76942; 80048; 80053; 80069; 82607; 82728; 82746; 83540; 83550; 83735; 84439; 84443; 84466; 84480; 85025; 85049; 85610; 85730; 87635; 88300; 88305; 88313; 88329; 88346; 88348; 88350; 93005; 96374; 96375; 96376; 99285; A9270; C9803; G0378; J0360; U0003

== ENCOUNTER 2020-09-17 17:36 | Inpatient (IN) | payer MEDICARE, SELFPAY ==
[2020-09-17] VITALS (8 sets, daily range): BP systolic 92–161; BP diastolic 61–76; PULSE 108–162; RESP 18–28; TEMP 36.1–38.3; O2SAT 94–96; BMI 29.3
--- NOTE | ~2020-09-17 | XR_ITS ---
EXAMINATION: XR chest port-a-cath/central EXAM DATE: 09/19/2020 16:42 INDICATION: dialysis catheter placement . TECHNIQUE: Portable AP frontal chest x-ray was obtained. Comparison is made to prior examination from 09/19, 09/17. FINDINGS: Interval insertion of a right-sided IJ double lumen dialysis catheter. Again there is dense consolidation in the right upper lobe, has increased in size compared to 09/17 involving multiple se gments. Probably also involving portions of the right lower lobe. No evidence of pneumothorax. Small left pleural effusion. Mild cardiomegaly. There is aortic arteriosclerosis. IMPRESSION: 1. Worsening right-sided consolidation, pneumonia. 2. Small left pleural effusion. 3. No evidence postprocedure pneumothorax. Reviewed, dictated and finalized at location A. EN THERAPIST
--- NOTE | ~2020-09-17 | CT_ITS ---
EXAMINATION:CT chest high resolution wo co DATE: 09/19/2020 10:20 INDICATION: Multilobar pneumonia. TECHNIQUE: Computed tomography (CT) of the chest was performed without intravenous contrast. Automate d exposure control and iterative reconstruction technique were employed. The dose-length product (DLP ) was 214.68 mGy-cm. COMPARISON: Chest single view 09/19/2020 FINDINGS: There is mild emphysema. Calcified right lower lobe nodules and calcified right hilar lymph nodes are consistent with old granulomatous disease. There are airspace and groundglass opacities in volving right upper lobe, right middle lobe, and superior segment right lower lobe with air bronchogr ams, consistent with pneumonia. There is smooth septal thickening in the inferior lungs, consistent w ith pulmonary edema. There are small groundglass opacities in left upper lobe. There are small pleura l effusions. Cardiomegaly is noted. There are coronary artery calcifications. No pericardial effusion . The central pulmonary arteries are enlarged, consistent with pulmonary arterial hypertension. There is mild mediastinal lymphadenopathy, likely reactive. There is a small volume of perihepatic ascites . There are bridging endplate osteophytes at multiple levels in the spine, consistent with diffuse id iopathic skeletal hyperostosis (DISH). There is severe cervical spondylosis and moderate thoracic spo ndylosis. IMPRESSION: 1. Right-sided pneumonia, worst in right upper lobe. 2. Mild pulmonary edema. 3. Small pleural effusions. 4. Mild emphysema. 5. Cardiomegaly. 6. Small volume of ascites. Reviewed, dictated and finalized at location A. HERIZATION ADMINISTRATOR
--- NOTE | ~2020-09-17 | XR_ITS ---
EXAMINATION: XR chest 1V portable DATE: 09/19/2020 06:45 INDICATION: Shortness of breath. TECHNIQUE: A single frontal view of the chest was obtained. COMPARISON: Chest single view 09/17/2020 FINDINGS: There are worsened airspace opacities in right mid and upper lung zones and at left lung ba se. There is a diffuse interstitial pattern in the lungs. There is a small left pleural effusion. No pneumothorax. Cardiomegaly is noted. IMPRESSION: 1. Diffuse lung disease, likely a combination of mild pulmonary edema and worsened right-sided pneumo deysi. 2. New small left pleural effusion. 3. Cardiomegaly. Reviewed, dictated and finalized at location A. L RIGHTS INVESTIGATOR IMPRESSION: 1. Diffuse lung disease, likely a combination of mild pulmonary edema and worse qasim right-sided pneumonia. 2. New small left pleural effusion. 3. Cardiomegaly.
--- NOTE | ~2020-09-17 | US_ITS ---
EXAMINATION: US renal BI DATE: 09/19/2020 11:05 INDICATION: Acute on chronic kidney disease. TECHNIQUE: Multiple ultrasound grayscale images of the kidneys were obtained. COMPARISON: Ultrasound 04/11/2019 FINDINGS: The right kidney measures 9.1 x 3.7 x 4.2 cm. The left kidney measures 9.4 x 3.9 x 4.5 cm. The kidney s demonstrate increased parenchymal echogenicity, consistent with nephropathy. There are cysts in lef t kidney measuring up to 2.0 cm. There is no hydronephrosis. The bladder is decompressed by a Reeder c atheter. IMPRESSION: 1. Increased renal parenchymal echogenicity, consistent with nephropathy. 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 2. No hydronephrosis. Reviewed, dictated and finalized at location A. LE DRIVER IMPRESSION: 1. Increased renal parenchymal echogenicity, consistent with nephropathy. Note that biopsy on 07/01/2020 demonstrated arterionephrosclerosis and diffuse and ea rly nodular glomerulosclerosis. 2. No hydronephrosis.
--- NOTE | ~2020-09-17 | XR_ITS ---
EXAMINATION: XR chest 1V portable EXAM DATE: 09/17/2020 18:05 INDICATION: Cough, shortness of breath, weakness, symptoms for days worsening. TECHNIQUE: Portable AP frontal chest x-ray was obtained. There is no prior study for comparison. FINDINGS: Dense segmental right upper lobe consolidation, appearance most consistent with bacterial p neumonia. Please clinically correlate. Follow-up is indicated to resolution to exclude any chronic un derlying mass. There is cardiomegaly and pulmonary vascular congestion. There is no pneumothorax suspected. There ar e no pleural effusions. There are mild bony degenerative changes. There is aortic arteriosclerosis. IMPRESSION: 1. Dense segmental right upper lobe infiltrate, probably pneumonia. Recommend follow-up chest x-ray to resolution. 2. Cardiomegaly, pulmonary vascular congestion. Reviewed, dictated and finalized at location A. MACHINE OPERATOR
--- NOTE | 2020-09-17 17:48 | ECG_ITS ---
Measurements Intervals [place] Rate: 155 P: 121 CA: 126 QRS: 82 QRSD: 129 T: 20 QT: 255 QTc: 409 Interpretive Statements ATRIAL FLUTTER/TACHYCARDIA WITH RAPID VENTRICULAR RESPONSE VENTRICULAR PREMATURE COMPLEXES RIGHT BUNDLE BRANCH BLOCK ABNORMAL ECG Electronically Signed On 09-18-2020 7:04:58 VICE PRESIDENT [employer] by Clarence Nguyễn D.O.
--- NOTE | 2020-09-17 17:50 | ED.SOB ---
HPI - SOB/Dyspnea General Chief Complaint: Shortness of Breath/Dyspnea Stated Complaint: SOB Time Seen by Provider: 09/17/20 17:48 History of Present Illness HPI Narrative: 75 yo female w/ h/o htn presents to the ED for cough and weakness. cough, congestion for about 4 days. Associated with progressive weakness and SOB. Noted to be febrile during triage today. No known sick exposures. No abdominal pain, nausea, vomiting, Headache, dysuria, hematuria, frequency. Related Data Home Medications Medication Instructions Recorded Confirmed Vitamin D3 2,000 unit PO DAILY 06/19/20 06/28/20 furosemide 20 mg PO DAILY 06/19/20 06/28/20 multivitamin 1 tablet PO DAILY 06/19/20 06/28/20 terazosin 6 mg PO BID 06/19/20 06/28/20 allopurinol 100 mg PO DAILY 06/28/20 06/28/20 Allergies Allergy/AdvReac Type Severity Reaction Status Date / Time lisinopril Allergy Severe KIDNEY Verified 09/17/20 17:52 ISSUES, SKIN BLISTERS loratadine Allergy Severe Swelling Verified 09/17/20 17:52 fenofibrate Allergy Mild Unknown Verified 09/17/20 17:52 Penicillins Allergy Unknown Rash Verified 09/17/20 17:52 Review of Systems Review of Systems: All systems reviewed & are unremarkable except as noted in HPI and below Constitutional: Constitutional: Reports chills, Reports fever(s) and Reports weakness ENT: Denies dizziness Cardiovascular: Cardiovascular: Reports chest pain Respiratory: Respiratory: Reports dyspnea Gastrointestinal: Gastrointestinal: Denies abdominal pain and Denies nausea Genitourinary: Genitourinary: Denies hematuria, Denies nocturia and Denies dysuria Musculoskeletal: Musculoskeletal: Denies back pain Integumentary/Breasts: Skin/Breast: Denies rash and Denies skin ulcer Neurologic: Denies confusion, Reports dizziness, Reports headache(s) and Reports weakness PMFSH Past Medical History Medical History Anemia Chronic renal failure, stage 4 (severe) Glaucoma Gout Hypertension Macular degeneration Surgical History Surgical History H/O bilateral cataract extraction Family History Family History Sibling Acute myocardial infarction Father Cerebrovascular accident Sibling Diabetes mellitus Mother Heart disease Social History Social History Social History: The patient lives alone and 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 she is a full code and her daughter is the durable power for application performance engineer. The patient raised her grandson vicki but only had one daughter. She her and they continued to live together until 3 years ago when he . No alcohol or street drugs. Years smoked: 30 Smoking status: Current every day smoker Tobacco type: cigarettes Alcohol intake: current Drinks per week: 1 Substance use: never Gender identity (if verbalized by the patient): Female Spiritual care concerns: No Exam Const: General: alert and ill appearing acutely Orientation/consciousness: patient oriented x3 HENMT: Head: normal to inspection Mouth: Yes dry mucous membranes Eyes: Pupils: Equal, round and reactive pupils present Neck: Neck: normal visual inspection Resp: Effort & Inspection: tachypneic Auscultation: wheezes Cardio: Rate: tachycardic Rhythm: regular rhythm GI: Inspection: non-distended GI Palp: Yes Soft to palpation and No Tenderness to palpation present (GI) Skin: General skin exam: normal color Neuro: General: patient oriented x3, moves all extremities, no focal motor deficits and CN's II-XI intact bilaterally Speech: normal speech Extrem: General: normal to inspection and no edema Psych: Mental Status: mental status grossly normal Affect: normal affect Attitude: cooperative Tho
[2020-09-17 18:14] LABS: Alveolar/Arterial O2 Gradient 76.2 mmHg; Base Excess ABG -5.4 mEq/l (+/-2.0); Fractional Inspired Oxygen 28 %; HCO3 ABG 18.6 mEq/l (22.0-26.0); Oxygen Content ABG 10.7 %vol (16.0-22.0); PCO2 ABG 29.8 mmHg (35.0-45.0); PO2 ABG 88.3 mmHg (80.0-100.0); PO2 FiO2 Ratio Arterial Blood 3.15 %; Total Hemoglobin 7.9 g/dL (12.0-18.0)
[2020-09-17 18:15] LABS: Site Drawn RIGHT RADIAL; pH ABG 7.412 (7.350-7.450)
[2020-09-17 18:16] LABS: Device NASAL CANNULA; Modified Allen's Test Pass
[2020-09-17 18:24] LABS: Basophils Percent Auto 0.2 % (0.2-1.2); Hematocrit 23.2 % (37.0-47.0); Hemoglobin 7.8 g/dL (12.0-15.0); Immature Granulocyte Absolute 0.22 K/mm3 (0.00-0.031); Immature Granulocyte Percent A 2.5 % (0-0.5); Lymphocytes Absolute Auto 0.21 K/mm3 (0.9-3.2); Lymphocytes Percent Auto 2.4 % (18.3-44.2); Mean Corpuscular HGB Conc 33.6 g/dl (32-36); Mean Corpuscular Volume 92.1 fl (80-100); Mean Platelet Volume 8.8 fl (7.4-10.4); Monocytes Absolute Auto 0.4 K/mm3 (0.1-0.6); Monocytes Percent Auto 4.4 % (2.6-8.5); Neutrophils Absolute Auto 7.9 K/mm3 (1.3-6.7); Neutrophils Percent Auto 90.5 % (45.5-73.1); Platelet Count Result 210 k/mm3 (150-375); Red Blood Count 2.52 M/mm3 (4.2-5.4); Red Cell Distribution Width 14.6 % (11.5-14.5); White Blood Count 8.7 K/mm3 (4.5-10.0)
[2020-09-17 18:30] LABS: Add Urine Microscopic? YES; Amorphous Sediment Urine Few; Appearance Urine Cloudy (Clear); Bacteria Urine 2+ /hpf; Bilirubin Urine Negative (Negative); Blood Urine 1+ (Negative); Color Urine Yellow (Yellow); Glucose Urine UA 2+ mg/dL (Negative); Ketones Urine Negative (Negative); Leukocyte Esterase Ur Negative LEU/UL (Negative); Mucus Urine Rare /lpf; Nitrate Urine Negative (Negative); Protein Urine 3+ mg/dL (Negative); Specific Grav Ur 1.015 (1.001-1.035); Squamous Epithelial Cell Urine Rare /hpf (Few); Urobilinogen Urine Negative mg/dL (<2.0)
[2020-09-17 18:32] LABS: INR 1.1; Prothrombin Time 14.9 Seconds (11.1-14.7)
[2020-09-17 18:33] LABS: Partial Thromboplastin Time 32.8 SECONDS (22.3-36.8)
[2020-09-17] MEDS: SODIUM CHLORIDE 0.9% IV 1,000 ML 999 ML IV CONT ×2 (18:33→19:49)
[2020-09-17 18:36] LABS: Lactic Acid Reflex 0.9 mmol/L (0.7-2.1)
[2020-09-17 18:40] LABS: Alanine Aminotransferase 55 U/L (4-35); Albumin Level 3.2 g/dL (3.5-5.1); Alkaline Phosphatase 72 U/L (38-126); Anion Gap 10 mmol/L (8-16); Aspartate Amino Transferase 81 U/L (14-36); Bilirubin,Total 0.9 mg/dL (0.2-1.3); Blood Urea Nitrogen 45 mg/dL (7-17); Calcium 8.2 mg/dL (8.4-10.2); Carbon Dioxide 19 mmol/L (22-30); Chloride 93 mmol/L (98-107); Estimated CRCL calculation 12 ml/min; Estimated Glomerular Filt Rate 13; Glucose 150 mg/dL (65-105); Potassium 4.2 mmol/L (3.4-5.0); Sodium 122 mmol/L (137-145)
[2020-09-17 18:54] LABS: CRP 26.7 mg/dL (<1.0)
[2020-09-17] MEDS: dilTIAZem HCl INJ 25 MG/5 ML VIAL 10 MG IV PUSH (20:02)
[2020-09-17] MEDS: AMIODARONE 150 MG/D5W 100 ML 150 MG/100 ML BAG 600 MG IV CONT (20:17)
[2020-09-17] MEDS: AMIODARONE 360 MG/D5W 200 ML 360 MG/200 ML BAG 33.33 MG IV CONT (20:30)
[2020-09-17] MEDS: ALBUTEROL SULFATE (*SP) AEROSOL 1 PUFF 2 PUFF INHALATION (20:38)
--- NOTE | 2020-09-17 20:38 | PM.IMHP ---
H&P: HPI History of Present Illness Date/Time: 09/17/20 20:38 Cheif Complaint: Dyspnea Narrative: Maura Hernandez is a 75 year old female with past medical history of CKD stage 4, hypertension who presents to ED with complaints of dyspnea. She has been feeling off for last month increased cough and shortness of breath the last couple days. Her main complaint is just weakness with increased falls and a lot of nonspecific complaints. Recently saw her help desk analyst Dr. Sanches who was going to give her IV vitamin-D. Denies any sick contacts, recent travels. She lives alone, 3 years ago. 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 Patient was recently admitted 06/28 to 07/01 for uncontrolled hypertension and renal biopsy on 07/01/2020. Anemia is attributed to CKD. Patient's primary help desk analyst Dr. Sanches. In the ED: Patient is found to have sepsis and pneumonia. COVID test pending. Patient started on amiodarone for tachycardia and hypertension suspicion for atrial flutter. Patient is hyponatremic 122, CHRIS creatinine 3.5. Other labs stable. Patient being admitted to IMU for sepsis and pneumonia and possible atrial flutter versus sinus tachycardia. Review of Systems Review of Systems: Narrative: Constitutional: No Fever, No Chills, No Night Sweats, endorses fatigue and generalized weakness and increased falls. ENT/Mouth: No Hearing Changes, No Ear Pain, No Nasal Congestion, No Sinus Pain, No Hoarseness, No sore throat, No Rhinorrhea, No Swallowing Difficulty Eyes: No Eye Pain, No Redness, No Vision Changes Cardiovascular: No Chest Pain, No Palpitations, No Dyspnea on Exertion, No Orthopnea, No Claudication, No Edema Respiratory: No Cough, No Sputum, No Wheezing, No Shortness of Breath Gastrointestinal: No Nausea, No Vomiting, No Diarrhea, No Constipation, No Abdominal Pain, No Heartburn, No Hematochezia, No Melena Genitourinary: No Dysuria, No Urinary Frequency, No Hematuria, No Urinary Incontinence, No Urgency Musculoskeletal: No Arthralgias, No Myalgias, No Joint Swelling, No Joint Stiffness, No Back Pain Skin: No Skin Lesions, No Pruritis, No Hair Changes Neuro: No Weakness, No Numbness, No Paresthesias, No Loss of Consciousness, No Syncope, No Dizziness, No Headache Psych: No Anxiety/Panic, No Depression, No Insomnia Heme: No Bruising, No Bleeding Lymph: No Adenopathy Endocrine: No Polyuria, No Polydipsia, No Temperature Intolerance PMFSH Past Medical History Medical History Anemia Chronic renal failure, stage 4 (severe) Glaucoma Gout Hypertension Macular degeneration Surgical History Surgical History H/O bilateral cataract extraction Family History Family History Sibling Acute myocardial infarction Father Cerebrovascular accident Sibling Diabetes mellitus Mother Heart disease Social History Social History Social History: The patient lives alone and 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 The patient raised her grandson vicki but only had one daughter. She her and they continued to live together until 3 years ago when he . No alcohol or street drugs. Smoking packs per day: 0.25 Smoking cigarettes per day: 5.0 Years smoked: 30 Smoking pack-years: 7.50 Smoking status: Current every day smoker Tobacco type: cigarettes Alcohol intake: never Drinks per week: 1 Substance use: never Substance use type: does not use Gender identity (if verbalized by the patient): Female Spiritual care concerns: No Meds Home Medications and Allergies Home Medications Medication Instructions Recorded Conf
[2020-09-17 21:43] LABS: Lactic Acid Reflex 0.5 mmol/L (0.7-2.1)
--- NOTE | 2020-09-17 22:24 | ADMGEN ---
This patient, Maura Hernandez, was admitted to IMU Room 213-01. Patient/family oriented to hospital policies and general routines including ID bracelet, bed and alarms, visiting hours, pain management, procedures, bathroom and other care routines, personal items, smoking policy, room service/diet, and visiting hours. Information on how to activate the Rapid Response Team has been discussed. Patient/Family are encouraged to report perceived risks to care and to ask questions if they do not understand what they are told or what they should do. Report from Bashir KUO approx [id number]
[2020-09-17] MEDS: SODIUM CHLORIDE 0.9% IV 1,000 ML 100 ML IV CONT (22:35)
[2020-09-18] VITALS (21 sets, daily range): BP systolic 106–134; BP diastolic 65–78; PULSE 70–143; RESP 20–24; TEMP 35.8–36.5; O2SAT 93–100
--- NOTE | 2020-09-18 | ECHO_ITS ---
Patient Info Name: Maura Hernandez Age: 75 years : 1945 Gender: Female Ht: 61 in Wt: 162 lbs BSA: 1.81 m2 HR: 133 bpm BP: 120 / 73 mmHg Heart Rhythm: Atrial Flutter Technical Quality: Good Exam Date: 09/18/2020 2:49 PM Exam Location: [facility] Patient Status: Inpatient Admit Date: 09/17/2020 Staff Ordering Physician: Bryan Melendez MD Display Department Manager: Darian Ruiz, [place], RT Attending Provider: Herb Lujan DO Referring Physician: Nora COHEN; Exam Type: CA echo dop color flow w con Study Info Indications I45.89 - Other specified conduction disorders Complete two-dimensional, color flow and Doppler transthoracic echocardiogram is performed. Strain analysis performed. Summary 1. Complete two-dimensional, color flow and Doppler transthoracic echocardiogram is performed. 2. Strain analysis performed. 3. Left ventricular chamber dimension is mildly enlarged. 4. Left ventricular systolic function is moderately reduced, estimated at 30-35%. 5. There is mildly increased left ventricular wall thickness. 6. The left ventricular diastolic function is indeterminate. 7. Global longitudinal strain is abnormal at -7 %. 8. Left atrial chamber dimension is moderately enlarged. 9. There is mild aortic valve calcification. 10. The mitral valve has thickened leaflets and calcified annulus. 11. There is moderate mitral valve regurgitation. 12. There is mild tricuspid valve regurgitation. 13. There is mild pulmonic regurgitation. Left Ventricle Left ventricular chamber dimension is mildly enlarged. Left ventricular systolic function is moderately reduced, estimated at 30-35%. There is mildly increased left ventricular wall thickness. The left ventricular diastolic function is indeterminate. Global longitudinal strain is abnormal at -7 %. Right Ventricle Right ventricular chamber dimension is normal. Right ventricular systolic function is normal. Left Atria Left atrial chamber dimension is moderately enlarged. Right Atria Right atrial chamber dimension is normal. Atrial Septum Suspected patent foramen ovale visualized by color flow imaging. Aortic Valve The aortic valve is trileaflet. There is mild aortic valve sclerosis. There is no aortic valve stenosis. There is trace aortic valve regurgitation. There is mild aortic valve calcification. Pulmonic Valve The pulmonic valve is normal. There is no pulmonic valve stenosis. There is mild pulmonic regurgitation. Mitral Valve The mitral valve has thickened leaflets and calcified annulus. There is no mitral valve stenosis. There is moderate mitral valve regurgitation. Tricuspid Valve The tricuspid valve leaflets are normal. There is no significant tricuspid valve stenosis. There is mild tricuspid valve regurgitation. Pericardium/Pleural The pericardium appears normal. There is no pericardial effusion. Inferior Vena Cava Dilated inferior vena cava with >50% collapse upon inspiration consistent with elevated right atrial pressure, 10 mmHg. Aorta The aortic root size at the sinus of Valsalva is normal. The prox ascending aorta size is normal. Left Ventricular Outflow Tract Name Value Normal LVOT 2D
[2020-09-18] MEDS: AMIODARONE 360 MG/D5W 200 ML 360 MG/200 ML BAG 16.67 MG IV CONT ×2 (02:17→14:19)
[2020-09-18] MEDS: ALBUTEROL SULFATE (*SP) AEROSOL 1 PUFF 2 PUFF INHALATION ×4 (03:50→20:32)
[2020-09-18] MEDS: DEXAMETHASONE SOD PHOS INJ 4 MG/ML VIAL 6 MG IV PUSH (08:36)
[2020-09-18] MEDS: SODIUM CHLORIDE 0.9% IV 1,000 ML 100 ML IV CONT (08:36)
[2020-09-18] MEDS: LATANOPROST 0.005% OP SOLN 2.5 ML BTL 1 DROP RIGHT EYE (08:36)
[2020-09-18] MEDS: HEPARIN SODIUM 5,000 UNITS/ML VIAL 5000 UNITS SUB-Q (08:37)
[2020-09-18 12:24] LABS: SARS-CoV-2 RNA PCR Negative
--- NOTE | 2020-09-18 12:47 | PM.IMPN ---
Progress Note: A&P Assessment and Plan (1) Community acquired pneumonia: Qualifiers: Laterality: right Lung location: upper lobe of lung Qualified Code(s): J18.9 - Pneumonia, unspecified organism Code(s): J18.9 - Pneumonia, unspecified organism Status: Acute Assessment and Plan: On Rocephin and Zithromax Breathing treatments (2) Sepsis: Qualifiers: Acute renal failure type: unspecified Sepsis acute organ dysfunction status: with acute organ dysfunction Sepsis type: sepsis due to unspecified organism Severe sepsis acute organ dysfunction type: acute renal failure Severe sepsis shock status: without septic shock Qualified Code(s): A41.9 - Sepsis, unspecified organism; R65.20 - Severe sepsis without septic shock; N17.9 - Acute kidney failure, unspecified Code(s): A41.9 - Sepsis, unspecified organism Status: Acute Assessment and Plan: Secondary to pneumonia Early goal directed therapy in progress. (3) Acute on chronic renal failure: Qualifiers: Acute renal failure type: unspecified Chronic kidney disease stage: stage 4 (severe) Qualified Code(s): N17.9 - Acute kidney failure, unspecified; N18.4 - Chronic kidney disease, stage 4 (severe) Code(s): N17.9 - Acute kidney failure, unspecified; N18.9 - Chronic kidney disease, unspecified Status: Acute Assessment and Plan: Likely pre renal Nephrology consult. (4) Hyponatremia: Code(s): E87.1 - Hypo-osmolality and hyponatremia Status: Acute Assessment and Plan: Continue to monitor. Daily BMP Patient on Lasix at home Currently holding diuretic. Has received aver 2 L of fluids I/O's balance is positive (5) Atrial flutter: Qualifiers: Atrial flutter type: unspecified Qualified Code(s): I48.92 - Unspecified atrial flutter Code(s): I48.92 - Unspecified atrial flutter Status: Acute Assessment and Plan: On Amiodarone drip. Cardiology consult. (6) Chronic renal failure, stage 4 (severe): Code(s): N18.4 - Chronic kidney disease, stage 4 (severe) Status: Chronic Assessment and Plan: Continue to monitor. Avoid nephrotoxins. Subjective Date/time seen: 09/18/20 12:47 Patient states that has had increasingly worsening sob for the last 3 weeks or so. Some chills. Review of Systems Review of Systems: Narrative: Generalized weakness, sob, for the last 3 weeks. Constitutional: Constitutional: Reports chills, Reports lethargy and Reports malaise Eyes: Comments: no change in vision. ENT: Comments: no ear ache, no throat pain, no nasal congestion. Cardiovascular: Comments: no chest pain. Respiratory: Comments: worsening sob for the last 3 weeks or so, no sputum production. Gastrointestinal: Comments: no n/v/abdominal pain, poor appetite. Musculoskeletal: Comments: no muscle aches or pains. Integumentary/Breasts: Comments: no rashes. Neurologic: Comments: no sensory motor deficit. Exam Narrative: Exam Narrative: Sitting in bed. Const: General: cooperative, comfortable, alert, awake, Physically active and ill appearing Nutritional Appearance: average body habitus HENMT: Head: normal to inspection and normocephalic Ears: hearing grossly normal bilaterally General nose exam: Normal external nose present Face and sinus: normal facial exam Eyes: General: appearance normal, both eyes and all related structures Pupils: Equal, round and reactive pupils present EOM: EOMs intact bilaterally Neck: Neck: normal visual inspection, full ROM, no lymphadenopathy, supple and no JVD Lymphatic: no lymphadenopathy noted Resp: Effort & Inspection: normal respiratory effort Auscultation: clear to auscultation bilaterally Cardio: Jugular venous distension: no JVD Rate: tachycardic GI: Inspection: normal to inspection GI Palp: Yes Soft to palpation and Yes No hepatosplenomegaly present Skin: General skin exam: norm
--- NOTE | 2020-09-18 13:58 | PM.CNCAR ---
Assessment and Plan Assessment and plan (1) Atrial flutter: Qualifiers: Atrial flutter type: unspecified Qualified Code(s): I48.92 - Unspecified atrial flutter Code(s): I48.92 - Unspecified atrial flutter Status: Acute Assessment and Plan: atrial flutter with rapid ventricular response is noted. Min present probably for at least 3 weeks. Will continue amiodarone drip. Will check a TSH and a free T4 level. Will also check a magnesium level. A BMP and a magnesium level will be ordered in the morning also. She will be kept NPO after midnight for SANTO guided cardioversion tomorrow. Risks, benefits alternatives are discussed and she is agreeable. Will discontinue her subcutaneous heparin start her on Xarelto 15 mg p.o. daily . she is anemic but I think the anemia is likely related to her kidney disease. Will need to pay close attention though to her hematocrit as an outpatient. She does have a chads Vasc score 4 though and almost 5 given her age. Certainly anticoagulation is warranted and advised. She verbalized understanding to all the above and she is agreeable to proceed. I will also order 2D echocardiogram Doppler now to ensure that her ejection fraction is not markedly diminished prior to procedure. (2) Acute kidney injury superimposed on chronic kidney disease: Code(s): N17.9 - Acute kidney failure, unspecified; N18.9 - Chronic kidney disease, unspecified Status: Acute Assessment and Plan: Followed by Dr. Sanches (3) Community acquired pneumonia: Qualifiers: Laterality: right Lung location: upper lobe of lung Qualified Code(s): J18.9 - Pneumonia, unspecified organism Code(s): J18.9 - Pneumonia, unspecified organism Status: Acute Assessment and Plan: continue antibiotics (4) Hyponatremia: Code(s): E87.1 - Hypo-osmolality and hyponatremia Status: Acute Assessment and Plan: likely related to some degree of failure (5) Anemia: Code(s): D64.9 - Anemia, unspecified Status: Acute Assessment and Plan: likely secondary to renal function but workup should be for performed per hospitalist (6) Uncontrolled hypertension: Code(s): I10 - Essential (primary) hypertension Status: Acute Assessment and Plan: under reasonable control at this point History of Present Illness History of Present Illness Consult date/time: 09/18/20 13:58 Requesting physician: Hunter Coreas MD Consult reason: Other ( atrial flutter) Reason For Visit: Sepsis, pneumonia, hyponatremia Narrative: reason for consultation: Atrial flutter Date of service 09/18/2020 History: Patient is a 75-year-old female who does not have known cardiac history. She does have chronic renal insufficiency, hypertension. Over the past 3 weeks she has been feeling sick. She states that she has felt dizzy, weak and drunk . Dizziness especially worsens upon standing. She has weakness also for the past couple weeks. She has noticed some elevated heart rates and palpitations over the past couple weeks also. She has had no chest pain but she has had shortness of breath which has been worsening over the past few weeks also. Her dyspnea is now present by doing almost any activity. She came to hospital because of all the above complaints. She was found to be in atrial flutter with rapid ventricular response. She is found have a pneumonia and there was some concern about dos santos virus infection but her COVID test is negative. She denies any paroxysmal nocturnal dyspnea. She has had worsening swelling in her feet. Swelling is also new and she typically does not have a history of swelling. She follows with Dr. Sanches from a Nephrology perspective. She was started on an amiodarone drip with some improvement of her heart rate but she is still in atrial flutter with a rapid ventricular response. She was given some subcutaneous heparin b
[2020-09-18] MEDS: PERFLUTREN LIPID MICROSPHERES 1.5 ML VIAL DILUTED TO 10 ML TOTAL VOLUME IV PUSH (15:21)
[2020-09-18 16:24] LABS: Magnesium 1.8 mg/dL (1.6-2.3)
[2020-09-18] MEDS: RIVAROXABAN 15 MG TABLET PO (17:19)
[2020-09-18 17:46] LABS: T4 Thyroxine 3.91 ug/dL (5.53-11.0)
--- NOTE | 2020-09-18 18:04 | PM.CNNEP ---
Assessment and Plan Assessment and plan (1) Anemia: Code(s): D64.9 - Anemia, unspecified Status: Acute Assessment and Plan: The patient has anemia. Part of this is from her renal failure, however usually her hemoglobin is in the 9.5-10 range. She has pneumonia which could also affect this. Will check iron studies and also stool guaiacs. If she truly has pneumonia which should not use iron to treat her anemia. We can give her EPO instead. (2) Acute kidney injury superimposed on chronic kidney disease: Code(s): N17.9 - Acute kidney failure, unspecified; N18.9 - Chronic kidney disease, unspecified Status: Acute Assessment and Plan: The patient has chronic kidney disease from hypertension. Her baseline creatinine has been running around 2.5-2.8. It was 2.8 from the labs within the last week before office visit. Currently her creatinine is higher. This is probably due to the a flutter and decreased renal perfusion therefrom. She could have other issues as well. Will get urine electrolytes and eosinophils and a renal ultrasound. (3) Community acquired pneumonia: Qualifiers: Laterality: right Lung location: upper lobe of lung Qualified Code(s): J18.9 - Pneumonia, unspecified organism Code(s): J18.9 - Pneumonia, unspecified organism Status: Acute Assessment and Plan: She is getting antibiotics for this. (4) Hyponatremia: Code(s): E87.1 - Hypo-osmolality and hyponatremia Status: Acute Assessment and Plan: Her sodium level is low. Will check another level this evening to make sure it does not correct too quickly. This may be from free renal factors due to her heart. (5) Gout: Code(s): M10.9 - Gout, unspecified Status: Chronic Assessment and Plan: No recent gouty attacks. History of Present Illness Reason for Consult Consult date: 09/18/20 Chief Complaint Chief complaint: Sepsis, pneumonia, hyponatremia History of Present Illness Narrative: Maura is a very pleasant 75-year-old lady who has chronic kidney disease and severe hypertension. She also has proteinuria, and a positive REAGAN. She recently had a kidney biopsy which showed only hypertension. Patient was in my office on Wednesday. She had been placed on amlodipine a couple of months before but developed dizziness from amlodipine so this was discontinued. Over the next couple of days the patient became weaker and so came to the ER. Showed a right upper lobe infiltrate and pulmonary vascular congestion so she was admitted. Her creatinine was found to be high at 3.5. Her baseline is 2.8 lately. Cardiology is seeing the patient and is evaluating her. She has atrial flutter with rapid ventricular response. Echocardiogram done this morning showed moderately reduced ejection fraction at 30-35%. The patient feels about the same today. She is not currently having any chest pain or shortness of breath She denies bloody urine foamy urine kidney stones bladder infections or painful urination. Review of Systems Constitutional: Constitutional: Reports no additional constitutional complaints Eyes: Eyes: Reports no additional eye complaints ENT: Reports system reviewed and no additional complaints, except as documented Cardiovascular: Cardiovascular: Reports no additional cardiovascular complaints Respiratory: Respiratory: Reports no additional respiratory complaints Gastrointestinal: Gastrointestinal: Reports no additional gastrointestinal complaints Genitourinary: Genitourinary: Reports no additional female genitourinary complaints Musculoskeletal: Musculoskeletal: Reports no additional musculoskeletal complaints Integumentary/Breasts: Skin/Breast: Reports system reviewed and no additional complaints, except as docu Neurologic: Reports system reviewed and no additional complaints, except as documented Psychiatric: Psychiatric: Reports no additional ps
[2020-09-18] MEDS: EPOETIN ALFA-EPBX 10,000 UNITS/ML VIAL 10000 UNITS SUB-Q (18:39)
--- NOTE | 2020-09-18 18:47 | ECG_ITS ---
Measurements Intervals [place] Rate: 81 P: 55 MI: 198 QRS: 70 QRSD: 144 T: 49 QT: 381 QTc: 444 Interpretive Statements SINUS RHYTHM VENTRICULAR PREMATURE COMPLEXES POSSIBLE LEFT ATRIAL ENLARGEMENT RIGHT BUNDLE BRANCH BLOCK ABNORMAL ECG Electronically Signed On 09-19-2020 7:25:43 TYPEWRITER MECHANIC by Clarence Nguyễn D.O.
[2020-09-18] MEDS: ALBUTEROL SULFATE NEB 2.5 MG/0.5 ML INH INHALATION (19:33)
[2020-09-18] MEDS: IPRATROPIUM BR 0.02% INH SOLN 0.5 MG/2.5 ML VIAL INHALATION (19:34)
[2020-09-18 19:38] LABS: Sodium 116 mmol/L (137-145)
[2020-09-18 19:41] LABS: Albumin Level 2.9 g/dL (3.5-5.1); Anion Gap 10 mmol/L (8-16); Blood Urea Nitrogen 56 mg/dL (7-17); Calcium 7.2 mg/dL (8.4-10.2); Carbon Dioxide 17 mmol/L (22-30); Chloride 90 mmol/L (98-107); Creatine Kinase 809 U/L (30-135); Estimated CRCL calculation 11 ml/min; Estimated Glomerular Filt Rate 11; Glucose 459 mg/dL (65-105); Phosphorus 7.4 mg/dL (2.5-4.5); Potassium 4.4 mmol/L (3.4-5.0); Sodium 117 mmol/L (137-145)
[2020-09-18 20:26] LABS: Iron < 10 ug/dL (37-170)
[2020-09-18] MEDS: FUROSEMIDE INJ 40 MG/4 ML VIAL 10 MG IV PUSH (20:29)
[2020-09-18] MEDS: FUROSEMIDE INJ 40 MG/4 ML VIAL 20 MG IV PUSH (20:30)
[2020-09-18 20:38] LABS: Percent Iron Saturation < 4 % (20-50)
[2020-09-18 21:06] LABS: Folic Acid > 20.0 ng/mL (2.76->20); Vitamin B12 > 1000.0 pg/mL (239-931)
[2020-09-18] MEDS: SODIUM CHLORIDE 1 GM TABLET PO (21:49)
[2020-09-18] MEDS: ACETAMINOPHEN 325 MG TABLET 650 MG PO (21:49)
[2020-09-19] VITALS (36 sets, daily range): BP systolic 120–164; BP diastolic 53–102; PULSE 68–91; RESP 18–24; TEMP 35.2–37.1; O2SAT 92–100
[2020-09-19 00:16] LABS: Creatinine Urine 89.3 mg/dL
[2020-09-19 00:20] LABS: Sodium Urine Random 13 meq/L
[2020-09-19 00:23] LABS: Total Protein Urine Random > 600 mg/dL; Ur Ttl Prot Creatinine Ratio 6.72 mg/mg (0-0.20)
[2020-09-19] MEDS: ALBUTEROL SULFATE (*SP) AEROSOL 1 PUFF 2 PUFF INHALATION ×2 (00:56→08:45)
[2020-09-19] MEDS: AMIODARONE 360 MG/D5W 200 ML 360 MG/200 ML BAG 16.67 MG IV CONT (00:56)
[2020-09-19] MEDS: ALBUTEROL SULFATE NEB 2.5 MG/0.5 ML INH INHALATION (04:56)
[2020-09-19] MEDS: FUROSEMIDE INJ 40 MG/4 ML VIAL 20 MG IV PUSH ×3 (05:23→22:38)
[2020-09-19] MEDS: SODIUM CHLORIDE 1 GM TABLET PO ×3 (05:23→22:38)
[2020-09-19 05:58] LABS: Albumin Level 2.9 g/dL (3.5-5.1); Anion Gap 16 mmol/L (8-16); Blood Urea Nitrogen 63 mg/dL (7-17); Calcium 7.6 mg/dL (8.4-10.2); Carbon Dioxide 15 mmol/L (22-30); Chloride 87 mmol/L (98-107); Estimated CRCL calculation 10 ml/min; Estimated Glomerular Filt Rate 10; Glucose 385 mg/dL (65-105); Phosphorus 8.4 mg/dL (2.5-4.5); Potassium 4.4 mmol/L (3.4-5.0); Sodium 118 mmol/L (137-145)
[2020-09-19 08:45] LABS: Hematocrit 21.3 % (37.0-47.0); Hemoglobin 7.1 g/dL (12.0-15.0); Immature Granulocyte Percent A 0.9 % (0-0.5); Lymphocytes Percent Auto 1.8 % (18.3-44.2); Mean Corpuscular HGB Conc 33.3 g/dl (32-36); Mean Corpuscular Hemoglobin 30.6 pg (26-34); Mean Corpuscular Volume 91.8 fl (80-100); Mean Platelet Volume 9.3 fl (7.4-10.4); Monocytes Absolute Auto 0.4 K/mm3 (0.1-0.6); Monocytes Percent Auto 3.9 % (2.6-8.5); Neutrophils Absolute Auto 10.6 K/mm3 (1.3-6.7); Neutrophils Percent Auto 93.4 % (45.5-73.1); Platelet Count Result 240 k/mm3 (150-375); Red Blood Count 2.32 M/mm3 (4.2-5.4); Red Cell Distribution Width 14.7 % (11.5-14.5); White Blood Count 11.3 K/mm3 (4.5-10.0)
[2020-09-19] MEDS: LATANOPROST 0.005% OP SOLN 2.5 ML BTL 1 DROP RIGHT EYE (09:11)
--- NOTE | 2020-09-19 09:40 | PM.CNPUL ---
Assessment and Plan Assessment and plan (1) COPD exacerbation: Code(s): J44.1 - Chronic obstructive pulmonary disease with (acute) exacerbation Status: Acute Assessment and Plan: New diagnosis for her - will start Ipratropium 0.5 mg Q6h - will start Pulmicort 1.0 mg Q12h - avoid Beta agonists due to rapid Afib, levalbuterol is not usually effective at low doses - continue Dexamethasone 6 mg daily for COPD exacerbation or another systemic steroid for 7 days without taper (2) Community acquired pneumonia: Qualifiers: Laterality: right Lung location: upper lobe of lung Qualified Code(s): J18.9 - Pneumonia, unspecified organism Code(s): J18.9 - Pneumonia, unspecified organism Status: Acute Assessment and Plan: - agree with Ceftriaxone and Azithromycin - Legionella Pneumonia is being ruled out in light of hyponatremia (3) CHF (congestive heart failure): Code(s): I50.9 - Heart failure, unspecified Status: Acute Assessment and Plan: Appears euvolemic, EF is depressed. History of Present Illness History of Present Illness Consult date: 09/19/20 Chief complaint: Sepsis, pneumonia, hyponatremia Narrative: 75 y/o female chronic smoker, with HTN, CKD, anemia presents with dyspnea, wheezing, chest tightness and cough that's been going for 2-3 weeks and getting worse. The cough is mostly non productive. SARS-CoV-2 is negative. CXR shows RUL consolidation and possible LLL infiltrate. She has 40-60 pack year smoking history and still smokes. She did have some URI symptoms a few days before her chest symptoms started. She denies loss of taste or smell, diarrhea, n/v. Her breathing is labored on exam. She had rapid afib on admission and is now rate controlled. 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 she is a full code and her daughter is the durable power for deputy county attorney. The patient raised her grandson vicki but only had one daughter. She her and they continued to live together until 3 years ago when he . No alcohol or street drugs. Smoking packs per day: 0.25 Smoking cigarettes per day: 5.0 Years smoked: 30 Smoking pack-years: 7.50 Smoking status: Current every day smoker Tobacco type: cigarettes Alcohol intake: never Drinks per week: 1 Substance use: never Substance use type: does not use Gender identity (if verbalized by the patient): Female Spiritual care concerns: No Meds Home Medications and Allergies Home Medications Medication Instructions Recorded Confirmed Type Vitamin D3 2,000 unit PO DAILY 06/19/20 09/17/20 History furosemide 20 mg PO DAILY 06/19/20 09/17/20 History multivitamin 1 tablet PO DAILY 06/19/20 09/17/20 History terazosin 4 mg PO BID 06/19/20 09/17/20 History allopurinol 100 mg PO DAILY 06/28/20 09/17/20 History bimatoprost [Lumigan] 1 drp RIGHTEYE DAILY 09/17/20 09/17/20 History Allergies Allergy/AdvReac Type Severity Reaction Status Date / Time lisinopril Allergy Severe KIDNEY Verified 09/17/20
--- NOTE | 2020-09-19 10:49 | PM.PNCARD ---
Progress Note: A&P Assessment and Plan (1) Atrial flutter: Qualifiers: Atrial flutter type: unspecified Qualified Code(s): I48.92 - Unspecified atrial flutter Code(s): I48.92 - Unspecified atrial flutter Status: Acute Assessment and Plan: She did convert to sinus rhythm. Will DC her amiodarone drip. She is on anticoagulation. (2) Acute kidney injury superimposed on chronic kidney disease: Code(s): N17.9 - Acute kidney failure, unspecified; N18.9 - Chronic kidney disease, unspecified Status: Acute Assessment and Plan: Followed by Dr. Sanches (3) Community acquired pneumonia: Qualifiers: Laterality: right Lung location: upper lobe of lung Qualified Code(s): J18.9 - Pneumonia, unspecified organism Code(s): J18.9 - Pneumonia, unspecified organism Status: Acute Assessment and Plan: continue antibiotics (4) Hyponatremia: Code(s): E87.1 - Hypo-osmolality and hyponatremia Status: Acute Assessment and Plan: likely related to some degree of failure. Nephrology following (5) Anemia: Code(s): D64.9 - Anemia, unspecified Status: Acute Assessment and Plan: likely secondary to renal function but workup should be for performed per hospitalist (6) Uncontrolled hypertension: Code(s): I10 - Essential (primary) hypertension Status: Acute Assessment and Plan: under reasonable control at this point (7) Cardiomyopathy: Code(s): I42.9 - Cardiomyopathy, unspecified Status: Acute Assessment and Plan: Will initiate low-dose carvedilol therapy 3.25 mg p.o. b.i.d.. No Kirill or Arb because of her renal failure. (8) Acute systolic (congestive) heart failure: Code(s): I50.21 - Acute systolic (congestive) heart failure Status: Acute Assessment and Plan: On diuresis. Will start carvedilol. No Kirill or Arb because of renal failure. Will eventually need ischemic workup once more stable. Subjective Date/time seen: 09/19/20 10:49 Interval history: 75-year-old admitted because of dyspnea. Date of service 09/19/2020: She is significantly dyspneic today. She is quite wheezy. No chest pain. She did convert back to sinus rhythm. Review of Systems Review of Systems: All systems reviewed & are unremarkable except as noted in HPI and below Constitutional: Constitutional: Denies fatigue, Denies headache(s) and Reports weakness Eyes: Eyes: Denies blurry vision ENT: Reports Normal hearing present, Denies headache(s) and Denies neck pain Cardiovascular: Cardiovascular: Denies chest pain, Reports palpitations and Reports dyspnea on exertion Respiratory: Respiratory: Reports dyspnea on exertion Gastrointestinal: Gastrointestinal: Denies abdominal pain Genitourinary: Genitourinary: Denies flank pain Musculoskeletal: Musculoskeletal: Denies neck pain Integumentary/Breasts: Skin/Breast: Denies dry skin Neurologic: Reports Normal hearing present, Denies confusion, Denies headache(s) and Reports weakness Psychiatric: Psychiatric: Denies anxiety and Denies confusion Endocrine: Endocrine: Denies fatigue and Reports palpitations Hematologic/Lymphatic: Hematologic/Lymphatic: Denies easy bleeding and Denies easy bruising Allergic/Immunologic: Allergic/Immunologic: Denies GI upset with certain foods Exam Narrative: Exam Narrative: Awake alert oriented. Appears to be in no acute distress at this point Const: General: comfortable and no acute distress; No confusion Orientation/consciousness: No confusion HENMT: General nose exam: Normal nares present Eyes: Sclera: sclerae normal Neck: Neck: supple and no JVD Chest: Other: no reproducible chest wall pain to palpation Resp: Auscultation: wheezes Cardio: Rate: tachycardic Rhythm: abnormal rhythm regularly irregular Skin: General skin exam: normal color Neuro: General: No confusion Cranial n
[2020-09-19] MEDS: BUDESONIDE RESPULE NEB 0.5 MG/2 ML AMP 1 MG INHALATION ×2 (10:59→20:30)
[2020-09-19] MEDS: IPRATROPIUM BR 0.02% INH SOLN 0.5 MG/2.5 ML VIAL INHALATION ×3 (11:00→20:30)
--- NOTE | 2020-09-19 11:05 | PCPTNOTE ---
Attempted therapy session, per RN holding session due to Pt SpO2 and inability catch her breath. RN stated Pt is having a hard time breathing with the slightest position change and requested therapy to hold.
[2020-09-19] MEDS: DEXAMETHASONE SOD PHOS INJ 4 MG/ML VIAL 6 MG IV PUSH (11:06)
[2020-09-19 11:12] LABS: Burr Cells 2+ (NORMAL); Platelet Estimate Adequate (Adequate)
--- NOTE | 2020-09-19 12:53 | PM.PNNEP ---
Progress Note: A&P Assessment and Plan (1) Anemia: Code(s): D64.9 - Anemia, unspecified Status: Acute Assessment and Plan: The patient has anemia. Part of this is from her renal failure, however usually her hemoglobin is in the 9.5-10 range. She has pneumonia which could also affect this. Iron levels are low. She is on antibiotics right now so will give iron down the road. stool guaiacs are pending. She is getting Epogen (2) Acute kidney injury superimposed on chronic kidney disease: Code(s): N17.9 - Acute kidney failure, unspecified; N18.9 - Chronic kidney disease, unspecified Status: Acute Assessment and Plan: The patient has chronic kidney disease from hypertension. Her baseline creatinine has been running around 2.5-2.8. It was 2.8 from the labs within the last week before office visit. Currently her creatinine is higher, even though her intake/output value are positive. Renal ultrasound shows increased echogenicity. Urine electrolytes show pre renal azotemia. Urinalysis shows a few red cells and white cells, probably not related to her renal issues. This was felt to partially be due to the atrial flutter and poor cardiac efficiency causing a prerenal component. However she has converted back to sinus rhythm and still she is not making any urine. At this point it looks like she is going to need dialysis. She has become progressively more short of breath and diuretics are not effecting a urine output enough to make her feel better. I talked with the patient at length. We discussed the risks benefits alternatives and the process of dialysis and she agrees to proceed. She still wants to do peritoneal dialysis as an outpatient when stable. I consulted surgery to place a catheter. Will get stat hepatitis B surface antigen. (3) Community acquired pneumonia: Qualifiers: Laterality: right Lung location: upper lobe of lung Qualified Code(s): J18.9 - Pneumonia, unspecified organism Code(s): J18.9 - Pneumonia, unspecified organism Status: Acute Assessment and Plan: She is getting antibiotics for this. (4) Hyponatremia: Code(s): E87.1 - Hypo-osmolality and hyponatremia Status: Acute Assessment and Plan: Her sodium level dropped to 116 yesterday afternoon. I put her on her fluid restriction and sodium tablets. Her sodium levels up to 118. Since she is not making much urine then the hyponatremia is probably purely from dilution. (5) Gout: Code(s): M10.9 - Gout, unspecified Status: Chronic Assessment and Plan: No recent gouty attacks. Subjective Date/time seen: 09/19/20 12:53 Interval history: Maura is feeling worse today. She is still short of breath. She received larger doses of diuretics yesterday but still is not making much urine. She is thirsty. Review of Systems Cardiovascular: Cardiovascular: Reports no additional cardiovascular complaints Respiratory: Respiratory: Reports no additional respiratory complaints Gastrointestinal: Gastrointestinal: Reports no additional gastrointestinal complaints Genitourinary: Genitourinary: Reports no additional female genitourinary complaints Exam Narrative: Exam Narrative: WDWN in NAD skin no rash head ncat lungs by basilar crackles cor reg no rub or gallop abd BS+ nontender and soft ext 1 to 2+ edema. Objective Data Vital Signs Vital Signs: Vital Signs - 24 hr 09/18/20 14:00 09/18/20 14:19 09/18/20 16:00 Temperature 36.5 C Pulse Rate 131 H 139 H 138 H Respiratory Rate 22 H Blood Pressure 112/78 Pulse Oximetry 97 09/18/20 16:45 09/18/20 18:00 09/18/20 19:00 Temperature Pulse Rate 133 H 82 Respiratory Rate 24 H Blood Pressure Pulse Oximetry 100 09/18/20 20:00 09/18/20 22:00 09/18/20 23:28 Temperature 36.2 C L Pulse Rate 78 70 Respiratory Rate 22 H Blood Pressure 113/67 Pulse Oxim
--- NOTE | 2020-09-19 13:29 | PM.IMPN ---
Progress Note: A&P Assessment and Plan (1) Acute systolic (congestive) heart failure: Code(s): I50.21 - Acute systolic (congestive) heart failure Status: Acute Assessment and Plan: Refractoriness to diuretic use. Fluid restriction Strict I/O's 2DECHO reviewed Appreciate Cardiology note. (2) COPD exacerbation: Code(s): J44.1 - Chronic obstructive pulmonary disease with (acute) exacerbation Status: Acute Assessment and Plan: Breathing treatments Systemic steroids Appreciate Pulmonology note. (3) Acute kidney injury superimposed on chronic kidney disease: Code(s): N17.9 - Acute kidney failure, unspecified; N18.9 - Chronic kidney disease, unspecified Status: Acute Assessment and Plan: Oliguric Planning for dialysis Appreciate Nephrology note (4) Community acquired pneumonia: Qualifiers: Laterality: right Lung location: upper lobe of lung Qualified Code(s): J18.9 - Pneumonia, unspecified organism Code(s): J18.9 - Pneumonia, unspecified organism Status: Acute Assessment and Plan: Rocephin and Zithromax Awaiting Legionella Covid 19 novel virus ruled out. (5) Acute on chronic renal failure: Qualifiers: Acute renal failure type: unspecified Chronic kidney disease stage: stage 4 (severe) Qualified Code(s): N17.9 - Acute kidney failure, unspecified; N18.4 - Chronic kidney disease, stage 4 (severe) Code(s): N17.9 - Acute kidney failure, unspecified; N18.9 - Chronic kidney disease, unspecified Status: Acute (6) Hyponatremia: Code(s): E87.1 - Hypo-osmolality and hyponatremia Status: Acute Assessment and Plan: Likely dilutional in view of positive I/O's balance Free water restriction. Salt tabs (7) Atrial flutter: Qualifiers: Atrial flutter type: unspecified Qualified Code(s): I48.92 - Unspecified atrial flutter Code(s): I48.92 - Unspecified atrial flutter Status: Acute Assessment and Plan: Currently on sinus rhythm. Follow Cardiology recs. Subjective Date/time seen: 09/19/20 13:29 Patient states that she feels very tired. Review of Systems Review of Systems: Narrative: States that feels very tired. Unable to get a thorough review as patient is sob. Constitutional: Comments: No chills. Respiratory: Comments: sob. Musculoskeletal: Comments: L hip pain from lying in this bed Exam Narrative: Exam Narrative: Sitting in bed. Const: General: well developed, alert, awake, Physically active, ill appearing and other (mild distress.) Nutritional Appearance: average body habitus and well nourished Orientation/consciousness: patient oriented x3 Limitations: no limitations HENMT: Head: normal to inspection and normocephalic Ears: hearing grossly normal bilaterally General nose exam: Normal external nose present Face and sinus: normal facial exam Eyes: General: appearance normal, both eyes and all related structures Pupils: Equal, round and reactive pupils present EOM: EOMs intact bilaterally Neck: Neck: normal visual inspection, no lymphadenopathy, supple and no JVD Resp: Effort & Inspection: Actively coughing and tachypneic Auscultation: wheezes Cardio: Jugular venous distension: no JVD Rate: regular rate Rhythm: regular rhythm GI: GI Palp: Yes Soft to palpation and Yes No hepatosplenomegaly present Skin: General skin exam: normal color Rashes: no rashes Neuro: General: patient oriented x3 Cranial nerves: Yes CN's II-XII intact bilaterally and Yes Equal, round and reactive pupils present Cognition (Neuro): normal cognition Motor exam (neuro): 5/5 motor strength present throughout Extrem: General: full ROM, no joint enlargement and no pedal edema Objective Data Vital Signs Vital Signs: Vital Signs - 24 hr 09/18/20 14:00 09/18/20 14:19 09/18/20 16:00 Temperature 97.7 F Pulse Rate 131 H 139 H 138 H Respiratory Rate 22 H Blood
--- NOTE | 2020-09-19 13:47 | PM.CNGS ---
Assessment and Plan Assessment and plan (1) Acute kidney injury superimposed on chronic kidney disease: Code(s): N17.9 - Acute kidney failure, unspecified; N18.9 - Chronic kidney disease, unspecified Status: Acute Assessment and Plan: Patient with acute on chronic kidney failure. Not responding to current treatment. Nephrology has asked our service to place temporary dialysis catheter. I discussed the description of the procedure, risks, benefits, indications, and expected outcomes with the patient in detail regarding placement of a temporary dialysis catheter by Dr. Johns at the bedside with local anesthetic. All questions were answered. Patient agrees to proceed. We will do this at the bedside this afternoon. Thank you for allowing us to see the patient in consultation. (2) COPD exacerbation: Code(s): J44.1 - Chronic obstructive pulmonary disease with (acute) exacerbation Status: Acute Assessment and Plan: New diagnosis. Pulmonology following. (3) Community acquired pneumonia: Qualifiers: Laterality: right Lung location: upper lobe of lung Qualified Code(s): J18.9 - Pneumonia, unspecified organism Code(s): J18.9 - Pneumonia, unspecified organism Status: Acute Assessment and Plan: On IV abx. Management per primary team/Pulmonology. (4) CHF (congestive heart failure): Code(s): I50.9 - Heart failure, unspecified Status: Acute (5) Sepsis: Qualifiers: Acute renal failure type: unspecified Sepsis acute organ dysfunction status: with acute organ dysfunction Sepsis type: sepsis due to unspecified organism Severe sepsis acute organ dysfunction type: acute renal failure Severe sepsis shock status: without septic shock Qualified Code(s): A41.9 - Sepsis, unspecified organism; R65.20 - Severe sepsis without septic shock; N17.9 - Acute kidney failure, unspecified Code(s): A41.9 - Sepsis, unspecified organism Status: Acute (6) Hyponatremia: Code(s): E87.1 - Hypo-osmolality and hyponatremia Status: Acute (7) Atrial flutter: Qualifiers: Atrial flutter type: unspecified Qualified Code(s): I48.92 - Unspecified atrial flutter Code(s): I48.92 - Unspecified atrial flutter Status: Acute Assessment and Plan: Converted back to sinus rhythm. Started on oral anticoagulation. Cardiology following. (8) Anemia: Qualifiers: Anemia type: unspecified type Qualified Code(s): D64.9 - Anemia, unspecified Code(s): D64.9 - Anemia, unspecified Status: Acute (9) Uncontrolled hypertension: Code(s): I10 - Essential (primary) hypertension Status: Acute (10) Gout: Code(s): M10.9 - Gout, unspecified Status: Chronic (11) Anticoagulated by anticoagulation treatment: Code(s): Z79.01 - watermaster (current) use of anticoagulants Status: Acute Assessment and Plan: Initially started on Xarelto with last dose around 1700 last night. Additional Plan Discussed the patient's case and plan of care with Dr. Johns. History of Present Illness Consult details Consult date: 09/19/20 Reason for consult: other (Temporary dialysis catheter placement) Requesting physician: Christian Sanches MD Narrative: This is a 75-year old female with a history of hypertension, chronic kidney disease, and anemia. She presented to the ER two days ago with complaints of weakness, shortness of breath, and increased falls. She was admitted for sepsis secondary to pneumonia and atrial flutter. Cardiology is following and she was initially on an amiodarone drip, that has since been discontinued once she converted to sinus rhythm. She was also started on Xarelto for anticoagulation by Cardiology, with her last dose yesterday evening. She also presented with acute on chronic kidney injury and hyponatremia. Nephrology was consulted and is following. Initially, it was felt that her
[2020-09-19 14:30] LABS: Hepatitis B Surface Antigen Negative (Negative)
[2020-09-19 15:25] LABS: Hepatitis B Surface Anti Res Negative
[2020-09-19 15:30] LABS: Sodium 119 mmol/L (137-145)
[2020-09-19 15:34] LABS: Hepatitis C Virus Antibody Negative (Negative)
--- NOTE | 2020-09-19 17:04 | P.OP_ITS ---
Procedure Note - Detailed Date of procedure: 09/19/20 Pre-op diagnosis: Sepsis, pneumonia, hyponatremia renal failure Post-op diagnosis: same Procedure performed: Placement of Trialysis catheter in right internal jugular vein under ultrasound guidance Description of procedure: The patient was placed in the supine position. The bed was then placed in Trendelenburg with the patient facing to his left to expose the right neck. I then prepped and draped the right neck in normal sterile fashion. A time-out was then done to verify the patient's identity as well as the procedure being performed. I then used the ultrasound to view the right internal jugular vein. Once this was identified, I localized the skin superior to the vein. I then used the 18 gauge needle to gain access into the right internal jugular vein, once again under ultrasound guidance. Once this was noted in good position, I removed the needle just leaving the guidewire in the vein. I then enlarged the incision around the guidewire in the right neck. I then dilated the vein and using the dilators provided in the kit under sterile Seldinger technique. Once the vein was adequately dilated, I was able to easily slide the catheter over the guidewire into the right internal jugular vein. I placed a 16 cm 12 [place] Trialysis catheter into the right internal jugular vein. I then removed the guidewire, now just leaving the catheter in the vein. I was then able to easily draw and flush from all 3 port sites . I then sutured the catheter in place in the right neck. Sterile dressing was then placed. I did not place final heparin flush into the catheter as the patient is going to get emergent dialysis today. The patient tolerated the procedure well. Implants: 16 cm 12 [place] Trialysis catheter in right IJ Anesthesia: local Surgeon: Klaudia Johns MD Estimated blood loss (mL): 5 Drains: No Packing: No Pathology: none sent Complications: No immediate complications Condition: stable Disposition: floor Findings: 1st stick right IJ via ultrasound guidance
--- NOTE | 2020-09-19 18:45 | PC.NURSE ---
Patient to dialysis via bed.
[2020-09-19] MEDS: carvediloL 3.125 MG TABLET PO (22:37)
[2020-09-20] VITALS: PULSE 103; PULSE 90; RESP 18; O2SAT 95
[2020-09-20 00:33] VITALS: PULSE 75
[2020-09-20 00:34] VITALS: PULSE 37; PULSE 57
[2020-09-20 00:52] LABS: Glucose Point of Care 343 (65-105)
--- NOTE | 2020-09-20 01:58 | PDCODEBLUE ---
[facility] Note Code [facility] Note Time Arrived at [facility]: 00:37 hrs. Initial Rhythm on Arrival: Asystole Airway Management: Initiated bagging pt on arrival Chest Compressions: In process on arrival to bedside Result of Code Blue: Pt Cardiac Rhythm Post Code: Asystole [facility] Summary: This was a 75 year old female being treated for pneumonia, acute renal failure, systolic heart failure and atrial fibrillation who is anticoagulated on Eliquis tonight suddenly developed a low heart rate that nursing staff noticed. The patient's nurse went into her room to check on her as her HR was in the low 30s. She found the patient unresponsive without a pulse. [facility] was called overhead. On my arrival to bedside the patient was being given CPR by the patient's nurse. We placed the patient on the vehicle monitor technician w/ defibrillator pads. At 00:39 hrs the patient we performed a pulse check and the patient was in asystole. 1 Amp of Epinephrine IVP was administered and CPR was resumed. 1 amp of Sodium Bicarbonate IVP was administered. At 2 minutes we performed a pulse check and the patient was in PEA. CPR was resumed and she was administered another 1 amp of Epinephine IVP. AT the 2 minute anil we perfored another pulse check and the patient was in asystole. She was administer another 1 amp of sodium Bicarbonate. She was administer another 1 amp of Epinephrine IVP. At the 2 minute anil we performed another pulse check and the patient continued to be in asystole. Time of was pronounced at 00:48 hrs. Nursing staff called her family and told them that she .
[2020-09-20 02:00] VITALS: PULSE 103
[2020-09-20 02:28] LABS: Pneumococcal Antigen Urine Not Detected (Not Detected)
--- NOTE | 2020-09-20 02:45 | PC.NURSE ---
AT 0034 WE NOTED THAT THE PATIENT HEART RATE HAD DECREASED TO 33/34 ON THE MEDICATION CARE MANAGER. RAN DOWN TO ROOM TO CHECK ON PATIENT. PATIENT WAS SPRAWLED OUT ON BED WITH AGONAL BREATHING. IMMEDIATELY CALLED CODE AND STARTED CHEST COMPRESSIONS. OTHERS WERE IN THE ROOM IN SECONDS TO ASSIST. PATIENT HAD RETURNED FROM DIALYSIS AROUND 2230 AND WAS GIVEN HER NIGHT MEDS ALONG WITH THE MISSED ANTIBIOTIC. THE ANTIBIOTICS WERE GIVEN AT A SLOWER RATE BECAUSE OF FLUID OVERLOAD. FOLLOW CODE SHEET FOR INFORMATION FOR CODE.
--- NOTE | 2020-09-20 03:54 | PC.NURSE ---
PATIENT PLACED IN [facility]ID[facility] IN [facility] AT 0345.
--- NOTE | 2020-09-20 06:47 | P.DN_ITS ---
Discharge Sum: Prov Provider Primary care physician: Raghu Ratliff MD Admitting provider: Antonio Lujan DO Consults: 09/17/20 Consult to Physician Routine Comment: EXCHANGE NOTIFIED OF CONSULT Consulting Provider: Christian Sanches call center coordinator/MD group to consult: Nephrology process consultant, please call in the AM Reason for consultation: Anemia of kidney disease, may need Epogen, CHRIS is due to sepsis Has provider been notified: Yes 09/18/20 Consult to Physician Routine Comment: SPOKE WITH ROSI Consulting Provider: Bryan Melendez Reason for consultation: aflutter/amio danni Has provider been notified: Yes 09/19/20 Consult to Physician Routine Comment: Consulting Provider: Alina Calixto call center coordinator/ group to consult: Pulmonology/Dr. Mcnulty Reason for consultation: Hypoxic respiratory failure. Has provider been notified: Yes Consult to Physician Routine Comment: Consulting Provider: Brando Friedman Reason for consultation: temporary dialysis catheter Has provider been notified: No Consult to Physician Routine Comment: SPOKE WITH ANY AT THE OFFICE Consulting Provider: Klaudia Johns call center coordinator/MD group to consult: MARIA E Reason for consultation: TEMPORARY DIALYSIS CATHETER Has provider been notified: Yes Discharge Sum: Summary Date and Time Date of admission: 09/17/20 19:56 Additional Data Attending physician: Antonio Lujan DO
[2020-09-21 19:20] LABS: Legionella pneumophila Ag Ur Detected (Not Detected)
[2020-09-25 04:13] LABS: Hepatitis B Core Ab Total Nonreactive (Nonreactive)
--- NOTE | 2020-10-13 18:59 | PM.DDS ---
Discharge Sum: Prov Provider Primary care physician: Raghu Ratliff MD Admitting provider: Antonio Lujan DO Attending physician on admission: Herb Lujan Consults: 09/17/20 Consult to Physician Routine Comment: EXCHANGE NOTIFIED OF CONSULT Consulting Provider: Christian Sanches process control technician/MD group to consult: Nephrology felt carbonizer, please call in the AM Reason for consultation: Anemia of kidney disease, may need Epogen, CHRIS is due to sepsis Has provider been notified: Yes 09/18/20 Consult to Physician Routine Comment: SPOKE WITH ROSI Consulting Provider: Bryan Melendez Reason for consultation: aflutter/amio drip Has provider been notified: Yes 09/19/20 Consult to Physician Routine Comment: Consulting Provider: Alina Calixto process control technician/MD group to consult: Pulmonology/Dr. Mcnulty Reason for consultation: Hypoxic respiratory failure. Has provider been notified: Yes Consult to Physician Routine Comment: Consulting Provider: Brando Friedman Reason for consultation: temporary dialysis catheter Has provider been notified: No Consult to Physician Routine Comment: SPOKE WITH ANY AT THE OFFICE Consulting Provider: Klaudia Johns process control technician/MD group to consult: MARIA E Reason for consultation: TEMPORARY DIALYSIS CATHETER Has provider been notified: Yes Pronouncing clinician: Ze Silverio Discharge Sum: Diag Contributing Factors (1) Acute systolic (congestive) heart failure: (2) Cardiomyopathy: (3) COPD exacerbation: (4) Acute kidney injury superimposed on chronic kidney disease: (5) Acute on chronic renal failure: (6) Atrial flutter: (7) Chronic renal failure, stage 4 (severe): Discharge Sum: Summary Date and Time Date of admission: 09/17/20 19:56 Date of : 09/20/20 Time of : 00:48 Summary Details: Patient was admitted to IMU for Acute CHF/Renal failure/ patient had been followed in the outpatient setting for renal failure and 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 Patient was found to have lung infiltrate as well and worsening renal function. We obtained a consult with Nephrology and Pulmonology. Patient was in the process to be started on dialysis and had catheter placed. She been diuresing and requiring supplemental O2. Code blue was activated after patient was found unresponsive and low heart rate with no pulse. After several rounds of ACLS patient was pronounced after no ROSC. EXAMINATION:CT chest high resolution wo co DATE: 09/19/2020 10:20 INDICATION: Multilobar pneumonia. TECHNIQUE: Computed tomography (CT) of the chest was performed without intravenous contrast. Automated exposure control and iterative reconstruction technique were employed. The dose-length product (DLP) was 214.68 mGy-cm. COMPARISON: Chest single view 09/19/2020 FINDINGS: There is mild emphysema. Calcified right lower lobe nodules and calcified right hilar lymph nodes are consistent with old granulomatous disease. There are airspace and groundglass opacities involving right upper lobe, right middle lobe, and superior segment right lower lobe with air bronchograms, consistent with pneumonia. There is smooth septal thickening in the inferior lungs, consistent with pulmonary edema. There are small groundglass opacities in left upper lobe. There are small pleural effusions. Cardiomegaly is noted. There are coronary artery calcifications. No pericardial effusion. The central pulmonary arteries are enlarged, consistent with pulmonary arterial hypertension. There is mild mediastinal lymphadenopathy, likely reactive. There is a small volume of perihepatic ascites. There are bridging endplate osteophytes at multiple levels in the spine, consistent with diffuse idiopathic skeletal hyperostosis (DISH). There is severe cervical spondylosis and moderate thoracic spondylosis. IMPRESSION: 1. Right-sided pneumonia, worst in right upper lobe.
== END 2020-09-20 00:38 | disposition expired | DRG 871 ==
LOC: ANHED 20:25 → ANHIMU 21:22
PROVIDERS: Internal Medicine Cardiovascular Disease; Internal Medicine Nephrology; Admitting Provider Student in an Organized Health Care Education/Training Program; Emergency Provider Emergency Medicine; PCP Family Medicine Adolescent Medicine; Visit Provider Family Medicine
DX: A41.9 Sepsis, unspecified organism (principal); I50.21 Acute systolic (congestive) heart failure; A48.1 Legionnaires' disease; N17.9 Acute kidney failure, unspecified; E87.1 Hypo-osmolality and hyponatremia; I48.92 Unspecified atrial flutter; N18.4 Chronic kidney disease, stage 4 (severe); J44.1 Chronic obstructive pulmonary disease with (acute) exacerbation; I13.0 Hypertensive heart and chronic kidney disease with heart failure and stage 1 through stage 4 chronic kidney disease, or unspecified chronic kidney disease; H35.30 Unspecified macular degeneration; Z20.828 Contact with and (suspected) exposure to other viral communicable diseases; D64.9 Anemia, unspecified; M10.9 Gout, unspecified; R65.20 Severe sepsis without septic shock; I46.9 Cardiac arrest, cause unspecified
CPT/HCPCS: 36415; 36600; 51701; 71045; 71250; 76775; 80053; 80069; 81001; 82550; 82570; 82607; 82728; 82746; 82805; 83540; 83550; 83605; 83735; 84156; 84295; 84300; 84436; 84443; 85025; 85610; 85730; 86140; 86704; 86706; 86803; 86850; 86900; 86901; 87040; 87340; 87449; 87635; 87899; 92950; 93005; 93306; 94640; 96361; 96365; 96375; 97161; 99291; A9270; C1752; C8929; C9803; J0171; J0282; J0456; J0461; J0696; J1100; J1644; J1940; J7030; Q5106; Q9957; U0003